=== PATIENT | female | born 1930 ===

== ENCOUNTER 2016-03-07 16:54 | Inpatient (IN) | payer OTHER, MEDICARE ==
[~2016-03-07] VITALS: Ht 152.4 cm; Wt 69.0 kg
[~2016-03-07 16:54] MED LIST: AFRIN30 ML NASB; ATORVASTATIN CA20 M1 PO; ATORVASTATIN CA20 MG PO; BENICAR40 MG PO; CARVEDILOL25 M1 PO; CLARITIN10 M1 PO; CLINDAMYCIN HC150 M1 PO; COUMADIN4 M1 PO; CYCLOBENZAPRINE5 M2 PO; DEMECLOCYCLINE300 MG PO; DIGOX0.25 MG PO; DIGOXIN250 MCG PO; FLEXERIL 5MG TAB5 MG PO; LASIX20 M1 PO; LASIX40 M1 PO; LASIX80 M1 PO; LIDOCAINE51 TOP; MAGNESIUM250 M3 PO; METOPROLOL TAR100 M1 PO; MULTI-DAY VITA1 EACH PO; NISOLDIPINE20 MG PO; PROCRIT10000 UNIT SC; SPIRONOLACTONE25 M1 PO; SPIRONOLACTONE25 MG PO; TEMAZEPAM15 M1 PO; TEMAZEPAM15 MG PO; TEMOVATE30 GM TOP; TRAZODONE HCL50 M1 PO; VESICARE5 M1 PO; VICODIN5-300 PO; VITAMIN D250000 UNIT PO; WARFARIN SODIUM2 M1 PO; WARFARIN SODIUM4 M1 PO; WARFARIN SODIUM5 M1 PO; WARFARIN SODIUM5 MG PO
--- NOTE | 2016-03-07 17:04 | NUR ---
PRESENTS TO ED FOR EVALUATION SECONDARY TO INCREASE EDEMA TO BILATERAL LOWER LEGS IN THE PAST WEEK AND NOW ALSO COMPLAINING OF BILATERAL ARM EDEMA. SHE REPORTED TO HAVE GAINED APPROXIMATELY 8 TO 10 LBS IN THE PAST WEEK. SHE ALSO REPORTS SOB ONLY UPON EXCERTION.
--- NOTE | 2016-03-07 17:42 | NUR ---
PT TO ROOM 1 RADIOLOGY AT BEDSIDE
[2016-03-07] MEDS ORDERED: FUROSEMIDE40 M1 PO (17:55)
[2016-03-07] MEDS ORDERED: TRAZODONE HCL50 M1 PO (17:56)
[2016-03-07] MEDS ORDERED: SENNA8.6 M3 PO (17:56)
[2016-03-07] MEDS ORDERED: SYSTANE 0.3-0.415 ML OPH (17:57)
[2016-03-07] MEDS ORDERED: SODIUM CHLORIDE1 G2 PO (17:57)
--- NOTE | 2016-03-07 18:04 | ED DYSPNEA/ASTHMA COMPLAINT ---
History of Present Illness General Chief Complaint: General Adult Stated Complaint: HX OF CHF, GAINED 10LBS, ARMS SWOLLEN, FELL YEST Source: patient Exam Limitations: no limitations Vital Signs & Intake/Output Vital Signs & Intake/Output Vital Signs Date Time Temp Pulse Resp B/P Pulse O2 O2 Flow FiO2 Ox Delivery Rate 03/07 2243 98.4 101 20 126/72 92 Room Air 03/07 2241 92 Room Air 03/07 1923 100 127/68 94 Room Air 03/07 1908 96 Room Air 03/07 1812 106 110/66 03/07 1703 98.1 103 18 104/56 92 Room Air ED Intake and Output 03/08 0000 03/07 1200 Intake Total 120 Output Total Balance 120 Intake, Oral 120 Patient 160 lb Weight Allergies Coded Allergies: Penicillins (EDEMA 09/18/15) cefdinir (TONGUE SWELLING 09/18/15) codeine (HYPERACTIVITY 09/18/15) erythromycin base (UPSET STOMACH 09/18/15) ibuprofen (UPSET STOMACH 09/18/15) Reconcile Medications Atorvastatin Calcium 20 MG TABLET 1 TAB PO DAILY CHOLESTEROL (Reported) Carvedilol 25 MG TABLET 1 TAB PO BID BP (Reported) Clobetasol Propionate (Temovate) 0.05 % CREAM..G. 1 SEB TOP PRN LEGS ( Reported) apply to affected area(s) Epoetin Edy (Procrit) 10,000 UNIT/ML VIAL 20,000 UNIT SC ONCE A WEEK ANEMIA Ergocalciferol (Vitamin D2) (Vitamin D2) 50,000 UNIT CAPSULE 1 CAP PO QSUN SUPPLEMENT (Reported) Furosemide 40 MG TABLET 1 TAB PO DAILY DIURETIC (Reported) Furosemide (Lasix) 80 MG TABLET 1 TAB PO DAILY HEART Nisoldipine 20 MG TAB.ER.24H 1 TAB PO QAM BP (Reported) Oxymetazoline HCl (Afrin) 0.05 % SPRAY NASAL CONGESTIN (Reported) Propylene Glycol/Peg 400 (Systane 0.3-0.4% Eye Drops) 0.3 %-0.4 % DROPS 1 GTT OPH QPM BOTH EYES (Reported) Sennosides (Senna) 8.6 MG TABLET 2 TAB PO QPM GI (Reported) Sodium Chloride 1 GRAM TABLET 1 TAB PO BID SODIUM (Reported) Solifenacin Succinate (Vesicare) 5 MG TABLET 1 TAB PO DAILY BLADDER (Reported ) Temazepam 15 MG CAPSULE 1 CAP PO QHS SLEEP (Reported) Trazodone HCl 50 MG TABLET 0.5 TAB PO Q4H PRN PANIC (Reported) Warfarin Sodium 4 MG TABLET 1 TAB PO DAILY AFIB (Reported) Triage Note: PRESENTS TO ED FOR EVALUATION SECONDARY TO INCREASE EDEMA TO BILATERAL LOWER LEGS IN THE PAST WEEK AND NOW ALSO COMPLAINING OF BILATERAL ARM EDEMA. SHE REPORTED TO HAVE GAINED APPROXIMATELY 8 TO 10 LBS IN THE PAST WEEK. SHE ALSO REPORTS SOB ONLY UPON EXCERTION. Triage Nurses Notes Reviewed? yes Onset: Abrupt Duration: day(s):, constant, getting worse Timing: recent history Severity: moderate, severe Activities at Onset: none HPI: 86-year-old female comes into emergency room with complaints of increase in shortness of breath, increased swelling in her legs and upper extremities. Patient was seen by Dr. Brink in the office. Patient was increased on the Lasix. Symptoms have gotten progressively worse. Patient has gained about 10 pounds in the week. Denies any chest pain. As any fever chills vomiting. (AHMET CISNEROS) Past History Travel History Traveled to [place] past 21 day No Medical History Any Pertinent Medical History? 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 No (AHMET CISNEROS) Review of Systems Review of Systems Constitutional: Reports: no symptoms. EENTM: Reports: no symptoms. Respiratory: Reports: see HPI. Cardiovascular: Reports: see HPI. GI: Reports: no symptoms. Genitourinary: Reports: no symptoms. Musculoskeletal: Reports: no symptoms. Skin: Reports: no symptoms. Neurological/Psychological: Reports: no symptoms. Hematologic/Endocrine: Reports: no symptoms. Immunologic/Allergic: Reports: no symptoms. All Other Systems: Reviewed and Negative (AHMET CISNEROS) Physical Exam Physical Exam General Appearance: well developed/nourished, alert, awake, mild distress Head: atraumatic, normal appearance Eyes: Bilateral: normal appearance, EOMI. Ears, Nose, Throat: normal pharynx, normal ENT inspection Neck: normal inspection Respiratory: decreased breath sounds, respiratory distress (mild) Cardiovascular: irregularly irregular Gastrointestinal: soft Extremities: normal inspection Neurologic/Psych: awake, alert, oriented x 3 Skin: intact, normal color Core Measures ACS in differential dx? No Severe Sepsis Present: No Septic Shock Present: No (AHMET CISNEROS) Progress Differential Diagnosis: asthma, AMI, bronchitis, costochondritis, CHF, COPD, musculoskeletal pain, pericarditis, pulmonary embolism, pneumonia, pneumothorax, rib fracture, unstable angina Plan of Care: Orders Procedure Date/time Status Heart Healthy Diet 03/08 B Active ECHOCARDIOGRAM 03/08 0800 Active TROPONIN LEVEL 03/08 0600 Active CBC WITHOUT DIFFERENTIAL 03/08 0600 Active BASIC ELECTROLYTES PLUS BUN&CR 03/08 0600 Active EKG 03/08 0600 Active TROPONIN LEVEL 03/08 0000 Active PROTHROMBIN TIME 03/08 0000 Active EKG 03/08 0000 Active Pathway - chart 03/07 2221 Active Pathway - chart 03/07 221 Active House Staff 03/07 2218 Active Patient Data 03/07 2218 Active Teach/Educate 03/07 2218 Active Nutritional Intake, Monitor 03/07 2218 Active Isolation 03/07 2218 Active Patient Care Conference 03/07 2218 Active Activity/Ambulation 03/07 221 Active Code Status 03/07 221 Active Saline Lock 03/07 2020 Active Misc Message 03/07 2020 Active ED Holding Orders 03/07 202 Active Vital Signs 03/07 202 Active Code Status 03/07 202 Complete Admit to inpatient 03/07 2020 Active Patient Data 03/07 1942 Active Intake & Output 03/07 1842 Active TROPONIN LEVEL 03/07 1729 Complete COMPREHENSIVE METABOLIC PANEL 03/07 1729 Complete CBC WITHOUT DIFFERENTIAL 03/07 1729 Complete B-TYPE NATRIURETIC PEP (BNP) 03/07 1729 Complete EKG 03/07 1729 Active VTE Mechanical Prophylaxis 03/07 UNK Active Telemetry/Warping Machine Operator 03/07 UNK Active Current Medications Sig/Aaliyah Start time Last Medication Dose Stop Time Status Admin Ergocalciferol 50,000 IU QSUN 03/14 0700 AC (Drisdol) Senna 374 MG AT BEDTIME 03/08 220 AC (Senokot) Atorvastatin Calcium 20 MG 1700 03/08 1700 AC (Lipitor) Furosemide 40 MG 7:30 AM, & 4:30 PM 03/08 07 UNVr (Lasix) Carvedilol 25 MG BID 03/07 2330 AC (Coreg) Non-Formulary 0 SEE ADMIN CRITERIA 03/07 2244 UNVr Medication (NON FORMULARY) Non-Formulary 0 SEE ADMIN CRITERIA 03/07 2244 UNVr Medication (NON FORMULARY) Temazepam 15 MG AT BEDTIME 03/07 2244 AC (Restoril) Trazodone HCl 25 MG Q4H PRN 03/07 2244 AC (Desyrel) Sodium Chloride 1,000 MG BID 03/07 2235 AC (Sodium Chloride) Clobetasol Propionate 1 SEB .[TOPICAL ] PRN 03/07 2229 UNVr (Clobetason) Laboratory Tests 03/08/16 0030: Troponin I Pending, PT Pending, INR Pending 03/07/16 1739: Anion Gap 13, Estimated GFR 17 L, BUN/Creatinine Ratio 16.3, Glucose 110 H, Calcium 9.5, Total Bilirubin 0.8, AST 17, ALT 24, Alkaline Phosphatase 112, Troponin I < 0.01, Sdb-[id number]-Qtvhucmsdrs Pept 70169 H, Total Protein 5.4 L, Albumin 3.0 L, Globulin 2.4, Albumin/Globulin Ratio 1.3, CBC w Diff NO MAN DIFF REQ, RBC 3.34 L, MCV 90.2, MCH 29.6, RDW 17.3 H, MPV 8.9, Gran % 93.5 H, Lymphocytes % 2.1 L, Monocytes % 3.9, Eosinophils % 0.4, Basophils % 0.1, Absolute Granulocytes 9.3 H, Absolute Lymphocytes 0.2 L, Absolute Monocytes 0.4, Absolute Eosinophils 0, Absolute Basophils 0, PUBS MCHC 32.8 L Diagnostic Imaging: Viewed by Me: Radiology Read. Discussed w/RAD: Radiology Read. Radiology Impression: SERVICE DATE: 03/07/16-1728 EXAM TYPE: RAD - XRY- PORTABLE CHEST XRAY EXAMINATION: XR PORTABLE CHEST CLINICAL INFORMATION: Shortness of breath. COMPARISON: Chest x-ray 12/19/2015. TECHNIQUE: Portable view of the chest was obtained. FINDINGS: Single AP view of the chest demonstrates pulmonary hypoinflation and bronchovascular crowding. Newly identified is a small to moderate left-sided pleural effusion. Left basilar opacification is nonspecific and could reflect atelectasis although superimposed infection cannot be excluded. There is stable prominence of the cardiac silhouette without overt pulmonary edema. No pneumothoraces. No visible acute osseous abnormality. IMPRESSION: Blunting of the left costophrenic angle, suggestive of a small to moderate left-sided pleural effusion. Stable cardiomegaly, without overt pulmonary edema. Left basilar opacification is nonspecific and could reflect atelectasis although superimposed infection cannot be excluded in the appropriate clinical setting. Initial ED EKG: rate (106), AFIB (AHMET CISNEROS) Departure Departure Disposition: STILL A PATIENT Condition: Stable Clinical Impression Primary Impression: CHF exacerbation Secondary Impressions: Acute kidney injury, Hyponatremia Referrals: MONICA CRANDALL,AURA Jones (PCP/Family) Departure Forms: Customer Survey General Discharge Information Admission Note Spoke With: LEOPOLDO CRANDALL,SUSY Rose Documentation of Exam: Documentation of any treatments & extenuating circumstances including Concerns Regarding Discharge (functional status, medication knowledge or non-compliance, living conditions, etc.) that warrant an admission rather than observation: Patient will require IV Lasix. Gentlehydration. Cardiology consultation. Echocardiogram. Cardiac telemetry. High risk. (AHMET CISNEROS) PA/BROACH GRINDER Co-Sign Statement Statement: ED Attending supervision documentation- [x] I saw and evaluated the patient. I have also reviewed all the pertinent lab results and diagnostic results. I agree with the findings and the plan of care as documented in the PA's/BROACH GRINDER's documentation. pt signed out to me... pt with dyspnea c/w chf, merits diuresis and [address] spaulding [] I have reviewed the ED Record and agree with the PA's/BROACH GRINDER's documentation. [] Additions or exceptions (if any) to the PAs/BROACH GRINDER's note and plan are summarized below: [] (MARILYN CRANDALL,SMITHA Murry) Critical Care Note Critical Care Note Critical Care Time: 30-74 min (AHMET CISNEROS)
--- NOTE | 2016-03-07 18:12 | RADIOLOGY REPORT ---
EXAMINATION: XR PORTABLE CHEST CLINICAL INFORMATION: Shortness of breath. COMPARISON: Chest x-ray 12/19/2015. TECHNIQUE: Portable view of the chest was obtained. FINDINGS: Single AP view of the chest demonstrates pulmonary hypoinflation and bronchovascular crowding. Newly identified is a small to moderate left-sided pleural effusion. Left basilar opacification is nonspecific and could reflect atelectasis although superimposed infection cannot be excluded. There is stable prominence of the cardiac silhouette without overt pulmonary edema. No pneumothoraces. No visible acute osseous abnormality. IMPRESSION: Blunting of the left costophrenic angle, suggestive of a small to moderate left-sided pleural effusion. Stable cardiomegaly, without overt pulmonary edema. Left basilar opacification is nonspecific and could reflect atelectasis although superimposed infection cannot be excluded in the appropriate clinical setting.
--- NOTE | 2016-03-07 18:13 | NUR ---
PT EVALUTED BY YUMIKO JEROME
[2016-03-07 18:14] LABS: ABSOLUTE BASOPHIL COUNT 0 /CUMM (0.0-0.2); ABSOLUTE EOSINOPHIL COUNT 0 /CUMM (0.0-0.7); ABSOLUTE GRANULOCYTE CT 9.3 /CUMM (1.4-6.5); ABSOLUTE LYMPH COUNT 0.2 /CUMM (1.2-3.4); ABSOLUTE MONOCYTE COUNT 0.4 /CUMM (0.10-0.60); BASOPHIL % 0.1 % (0.0-2.0); EOSINOPHIL % 0.4 % (0-5); HEMATOCRIT 30.1 % (37-47); MEAN CORPUSCULAR HGB 29.6 PG (27.0-31.0); MEAN CORPUSCULAR HGB CONC 32.8 G/DL (33.0-37.0); MEAN CORPUSCULAR VOLUME 90.2 FL (81.0-99.0); MEAN PLATELET VOLUME 8.9 FL (7.4-10.4); PLATELET COUNT 204 /CUMM (130-400); RBC DISTRIBUTION WIDTH 17.3 % (11.5-14.5); RED BLOOD CELL CT 3.34 /CUMM (4.20-5.40)
[2016-03-07 18:19] LABS: GRANULOCYTE % 93.5 % (42.2-75.2)
[2016-03-07 18:41] LABS: WHITE BLOOD CELL COUNT 9.9 /CUMM (4.8-10.8)
--- NOTE | 2016-03-07 18:41 | NUR ---
[facility]ON Nurse Note by: MARCELINA CORRALES I agree with the METER READING CLERK findings/evaluation of this patient's condition. Entered by: MARCELINA CORRALES Date: 03/07/16 Time: 1840
--- NOTE | 2016-03-07 19:22 | NUR ---
PT MEDICATED WITH 40MG LASIX IV.
--- NOTE | 2016-03-07 19:42 | NUR ---
YUMIKO LEO AT BEDSIDE.
--- NOTE | 2016-03-07 20:47 | NUR ---
PT BED ASSIGNMENT 172
--- NOTE | 2016-03-07 20:56 | NUR ---
REPORT GIVEN TO ALEKSANDAR NAGY ON 1N.
--- NOTE | 2016-03-07 21:01 | NUR ---
[facility] CALLED FOR TRANSPORT TO ROOM 172.
--- NOTE | 2016-03-07 21:20 | History & Physical ---
General Information and HPI Allergies/Medications Allergies: Coded Allergies: Penicillins (EDEMA 09/18/15) cefdinir (TONGUE SWELLING 09/18/15) codeine (HYPERACTIVITY 09/18/15) erythromycin base (UPSET STOMACH 09/18/15) ibuprofen (UPSET STOMACH 09/18/15) Home Med list Atorvastatin Calcium 20 MG TABLET 1 TAB PO DAILY CHOLESTEROL (Reported) Carvedilol 25 MG TABLET 1 TAB PO BID BP (Reported) Clobetasol Propionate (Temovate) 0.05 % CREAM..G. 1 SEB TOP PRN LEGS ( Reported) apply to affected area(s) Epoetin Edy (Procrit) 10,000 UNIT/ML VIAL 20,000 UNIT SC ONCE A WEEK ANEMIA Ergocalciferol (Vitamin D2) (Vitamin D2) 50,000 UNIT CAPSULE 1 CAP PO QSUN SUPPLEMENT (Reported) Furosemide 40 MG TABLET 1 TAB PO DAILY DIURETIC (Reported) Furosemide (Lasix) 80 MG TABLET 1 TAB PO DAILY HEART Nisoldipine 20 MG TAB.ER.24H 1 TAB PO QAM BP (Reported) Oxymetazoline HCl (Afrin) 0.05 % SPRAY NASAL CONGESTIN (Reported) Propylene Glycol/Peg 400 (Systane 0.3-0.4% Eye Drops) 0.3 %-0.4 % DROPS 1 GTT OPH QPM BOTH EYES (Reported) Sennosides (Senna) 8.6 MG TABLET 2 TAB PO QPM GI (Reported) Sodium Chloride 1 GRAM TABLET 1 TAB PO BID SODIUM (Reported) Solifenacin Succinate (Vesicare) 5 MG TABLET 1 TAB PO DAILY BLADDER (Reported ) Temazepam 15 MG CAPSULE 1 CAP PO QHS SLEEP (Reported) Trazodone HCl 50 MG TABLET 0.5 TAB PO Q4H PRN PANIC (Reported) Warfarin Sodium 4 MG TABLET 1 TAB PO DAILY AFIB (Reported) Past History Travel History Traveled to [place] past 21 day No Medical History Neurological: NONE EENT: NONE Cardiovascular: AFIB, hypertension, hyperlipidemia Respiratory: NONE Gastrointestinal: NONE Hepatic: NONE, ELEVATED LIVER ENZYMES Renal: ELEVATED RENAL FUNCTIONS Musculoskeletal: osteoporosis Psychiatric: NONE Endocrine: NONE Blood Disorders: NONE Cancer(s): NONE 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
--- NOTE | 2016-03-07 22:17 | History & Physical ---
MORIAH BRAGG 03/07/16 2216: General Information and HPI MD Statement: I have seen and personally examined TORRIE STANTON and documented this H&P. The patient is a 86 year old F who presented with a patient stated chief complaint of [upper and lower extremity swelling, weakness with ambulation]. Source of Information: patient, family, old records Exam Limitations: no limitations History of Present Illness: Mrs Stanton is a very pleasant 86-year-old lady with a PMH of atrial fibrillation on Coumadin, HTN, HLD, COPD, iron deficiency anemia presents with complaints of one-week duration upper and lower extremity swelling, 10 pound weight gain and exertional shortness of breath. She was last admitted to [facility] in November 2015 for lower extremity edema, managed with IV Lasix, returned a few days later after suffering a fall and discharged to [facility], [place] for rehabilitation. She was sent home 2 days before [place] and reports doing well overall until February 28 when she noted exertional shortness of breath and ambulating with walker and new onset bilateral upper extremity swelling/weeping along with bilateral lower extremity swelling. She contacted her hands parter and started on additional furosemide 40 mg daily along with her previous dose of 80 mg daily. In the setting of her anemia she also recently started weekly Procrit shots at the [facility] infusion center with noticeable improvement in her energy level. She reports decreased urine output but denies any fevers, chills, productive cough, headache, dizziness, palpitations, chest pain, new onset numbness in any of her extremities. Her last echocardiogram from : LVEF 60%, mild LVH, severely dilated right atrium, RV systolic pressure 46.7 mmHg. Allergies/Medications Allergies: Coded Allergies: Penicillins (EDEMA 09/18/15) cefdinir (TONGUE SWELLING 09/18/15) codeine (HYPERACTIVITY 09/18/15) erythromycin base (UPSET STOMACH 09/18/15) ibuprofen (UPSET STOMACH 09/18/15) Past History Travel History Traveled to [place] past 21 day No Medical History Neurological: NONE EENT: NONE Cardiovascular: AFIB, hypertension, hyperlipidemia Respiratory: NONE Gastrointestinal: NONE Hepatic: NONE, ELEVATED LIVER ENZYMES Renal: ELEVATED RENAL FUNCTIONS Musculoskeletal: osteoporosis Psychiatric: NONE Endocrine: NONE Blood Disorders: NONE Cancer(s): NONE DIRECTOR OF VOCATIONAL GUIDANCE/Reproductive: NONE History of MRSA: Yes History of VRE: No History of CDIFF: No Surgical History Surgical History: B/L KNEE REPLACEMENT HYSTERECTOMY PLEURISY Past Family/Social History Psychosocial History Services at Home: None Functional Ability ADLs Independent: dressing, eating, toileting. Ambulation: walker Review of Systems Review of Systems Constitutional: Reports: see HPI. EENTM: Reports: blurred vision. Cardiovascular: Reports: see HPI. Respiratory: Reports: see HPI. GI: Reports: constipation. Genitourinary: Reports: see HPI. Musculoskeletal: Reports: see HPI. Hematologic/Endocrine: Reports: see HPI. Exam & Diagnostic Data Last 24 Hrs of Vital Signs/I&O Vital Signs Date Time Temp Pulse Resp B/P Pulse O2 O2 Flow FiO2 Ox Delivery Rate 03/07 2243 98.4 101 20 126/72 92 Room Air 03/07 2241 92 Room Air 03/07 1923 100 127/68 94 Room Air 03/07 1908 96 Room Air 03/07 1812 106 110/66 03/07 1703 98.1 103 18 104/56 92 Room Air Physical Exam General Appearance Alert, Cooperative, No Acute Distress Skin Bilateral temporal hyperpigmentation HEENT PERRLA, EOMI, Mucous Membr. moist/pink Cardiovascular Irregularly irregular rhythm. Systolic murmur Lungs Inspiratory crackles present in the basilar regions bilaterally Abdomen Normal Bowel Sounds, Soft, No Tenderness Neurological Normal Speech, Normal Tone, Sensation Intact, Cranial Nerves 3-12 NL Extremities 3+ pitting edema BL upper and lower extremities Vascular Pulses Symmetrical, Distal aspect of both feeet slightly cool to touch Last 24 Hrs of Labs/Saad: Laboratory Tests 03/07/16 1739: Anion Gap 13, Estimated GFR 17 L, BUN/Creatinine Ratio 16.3, Glucose 110 H, Calcium 9.5, Total Bilirubin 0.8, AST 17, ALT 24, Alkaline Phosphatase 112, Troponin I < 0.01, Ghg-N-Qvjfmndagus Pept 75924 H, Total Protein 5.4 L, Albumin 3.0 L, Globulin 2.4, Albumin/Globulin Ratio 1.3, CBC w Diff NO MAN DIFF REQ, RBC 3.34 L, MCV 90.2, MCH 29.6, RDW 17.3 H, MPV 8.9, Gran % 93.5 H, Lymphocytes % 2.1 L, Monocytes % 3.9, Eosinophils % 0.4, Basophils % 0.1, Absolute Granulocytes 9.3 H, Absolute Lymphocytes 0.2 L, Absolute Monocytes 0.4, Absolute Eosinophils 0, Absolute Basophils 0, PUBS MCHC 32.8 L Diagnostic Data CXR Results Blunting of the left costophrenic angle, suggestive of a small to moderate left- sided pleural effusion. Stable cardiomegaly, without overt pulmonary edema. Left basilar opacification is nonspecific and could reflect atelectasis although superimposed infection cannot be excluded in the appropriate clinical setting. Assessment/Plan Assessment: 86-year-old lady with a PMH of atrial fibrillation on Coumadin, HTN, HLD, COPD, iron deficiency anemia presents with complaints of one-week duration upper and lower extremity swelling, 10 pound weight gain and exertional shortness of breath. She was last admitted to [facility] in November 2015 for lower extremity edema, managed with IV Lasix, returned a few days later after suffering a fall and discharged to [facility], [place] for rehabilitation. She was sent home 2 days before [place] and reports doing well overall until February 28 when she noted exertional shortness of breath and ambulating with walker and new onset bilateral upper extremity swelling/weeping along with bilateral lower extremity swelling. She contacted her hands parter and started on additional furosemide 40 mg daily along with her previous dose of 80 mg daily. In the setting of her anemia she also recently started weekly Procrit shots at the [facility] center with noticeable improvement in her energy level. She reports decreased urine output but denies any fevers, chills, productive cough, headache, dizziness, palpitations, chest pain, new onset numbness in any of her extremities. VS: BP 104/56, HR 103, RR 18, SPO2 92% on RA, T 98.1 Pertinent labs: WBC 9.9, H&H 9.9/30.1, BUN/CR 44/2.7 ProBNP: 17,500 Troponin: <0.01 Problem list: 1. CHF exacerbation 2. Anasarca 3. A. fib 4. CKD 5. Iron deficiency Anemia 6. Hyponatremia: Likely secondary to fluid overload in the setting of CHF Plan: * Admit to telemetry for continuous cardiac monitoring. Serial EKG/troponin: 0000 hours, 0600 hrs. * Repeat echocardiogram in the a.m. to assess for RV systolic pressure, EF. Patient will follow-up with Dr. Cedeno in the a.m. * IV Lasix 40 mg twice a day. Monitor I/O, renal function, magnesium, phosphorus, potassium * Daily weights * Follow-up INR and dose Coumadin for goal 2-3 * Patient follows up with Dr. Day for her CKD. A.m. consult for follow-up recommendations * Heart healthy diet * DVT prophylaxis: Coumadin * DNR/DNI AM team: Please have daughter bring her current blood pressure medication ( Nisoldipine) and ophthalmic medication (systain) as our inpatient pharmacy does not have these in house. As Ranked By This Provider Problem List: 1. CHF exacerbation 2. Anasarca 3. Acute kidney injury Core Measures/Miscellaneous Acute Coronary Syndrome ACS Diagnosis: No Cerebrovascular Accident CVA/TIA Diagnosis: No Congestive Heart Failure CHF Diagnosis: Yes Date of most recent Echo: 12/21/15 Last Known EF %: 60 Venous Thromboembolism VTE Risk Factors: Age > 40 VTE Prophylaxis Ordered Inpt: [facility] prophylaxis d/t: No contraindications No VTE Pharm Prophylaxis d/t: No contraindications VTE Diagnosis: No VTE Type: NONE VTE Confirmed by (Test): NONE Severe Sepsis Severe Sepsis Present: No Septic Shock Septic Shock Present: No Miscellaneous Documentation Attending Case Discussed With: MARIO CEDENO MD Primary Care Physician: AURA ANDERSON MD Patient sees these Specialists NA Level of Patient Care: Telemetry Resident Review Statement Resident Statement: examined this patient, discussed with international trade analyst, agreed with international trade analyst, discussed with family, reviewed EMR data (avail), discussed with nursing , reviewed images MARIO CEDENO MD 03/08/16 0927: General Information and HPI Allergies/Medications Home Med list Atorvastatin Calcium 20 MG TABLET 1 TAB PO DAILY CHOLESTEROL (Reported) Carvedilol 25 MG TABLET 1 TAB PO BID BP (Reported) Epoetin Edy (Procrit) 10,000 UNIT/ML VIAL 20,000 UNIT SC ONCE A WEEK ANEMIA Ergocalciferol (Vitamin D2) (Vitamin D2) 50,000 UNIT CAPSULE 1 CAP PO QSUN SUPPLEMENT (Reported) Furosemide 40 MG TABLET 1 TAB PO DAILY DIURETIC (Reported) Furosemide (Lasix) 80 MG TABLET 1 TAB PO DAILY HEART Nisoldipine 20 MG TAB.ER.24H 1 TAB PO QAM BP (Reported) Oxymetazoline HCl (Afrin) 0.05 % SPRAY NASAL CONGESTIN (Reported) Propylene Glycol/Peg 400 (Systane 0.3-0.4% Eye Drops) 0.3 %-0.4 % DROPS 1 GTT OPH QPM BOTH EYES (Reported) Sennosides (Senna) 8.6 MG TABLET 2 TAB PO QPM GI (Reported) Sodium Chloride 1 GRAM TABLET 1 TAB PO BID SODIUM (Reported) Solifenacin Succinate (Vesicare) 5 MG TABLET 1 TAB PO DAILY BLADDER (Reported ) Temazepam 15 MG CAPSULE 1 CAP PO QHS SLEEP (Reported) Trazodone HCl 50 MG TABLET 0.5 TAB PO Q4H PRN PANIC (Reported) Warfarin Sodium (Coumadin) 3 MG TABLET 1 TAB PO DAILY A.fib (Reported) total dose 3.5 daily Warfarin Sodium (Coumadin) 1 MG TABLET 0.5 TAB PO DAILY A.fib (Reported) total dose 3.5 daily Past Family/Social History Family History Relations & Conditions if any FATHER Coronary artery disease Attending MD Review Statement Attending Statement Attending MD Statement: examined this patient, discuss w/resident/PA/SANDWICH MAKER, agreed w/resident/PA/SANDWICH MAKER, discussed with family, reviewed EMR data (avail), discussed with nursing, reviewed images, amended to note Attending Assessment/Plan: Agree with housestaff note above. The patient is an 86-year-old female who follows up with me in the office for chronic atrial fibrillation, HFpEF, and hypertension. She was seen in the office one week ago, which time I increased her Lasix dose to 80 mg every morning with 40 mg every afternoon because of symptoms of worsening heart failure. She presented to the emergency department with complaint of worsening edema of the lower and upper extremities. She complains of recent weight gain. She also complains of recent weakness. She was treated with IV Lasix, and was admitted for acute on chronic exacerbation of HFpEF. No chest pain. No palp. No syncope ROS: No fever. No chills. No rash. All other systems are reviewed and are negative. EKG tracing is independently reviewed, and reveals A-Fib at 88 with low voltage and nonspecific T-wave abnormality Gen: The patient is in no acute distress HEENT: Normal nose, ears, and oropharynx. Pupils equal bilaterally. Conjunctiva normal. Neck: Supple with no JVD, no masses, and no thyromegaly Lungs: Bilateral rales with normal respiratory effort Heart: Irreg irreg, S1, S2, 2/6 systolic murmur. 2+ peripheral edema, 2+ pulses in the lower extremities bilaterally Abdomen: Soft, nontender, no masses. No hepatomegaly. No splenomegaly Extremities: No clubbing or cyanosis. Normal muscle strength in the upper and lower extremities Skin: Normal skin turgor with no skin ulcers or lesions noted. Neuro: Cranial nerves intact. Sensation intact Psych: Alert and oriented 3 with appropriate affect Laboratory Tests 03/08 03/08 0620 0030 Chemistry Sodium (137 - 145 mmol/L) 129 L Potassium (3.5 - 5.1 mmol/L) 4.5 Chloride (98 - 107 mmol/L) 96 L Carbon Dioxide (22 - 30 mmol/L) 21 L Anion Gap (5 - 16) 12 BUN (7 - 17 mg/dL) 45 H Creatinine (0.5 - 1.0 mg/dL) 2.7 H Estimated GFR (>60 ml/min) 17 L BUN/Creatinine Ratio (7 - 25 %) 16.7 Troponin I (< 0.11 ng/ml) 0.01 0.01 Coagulation PT (9.4 - 12.5 SEC) 32.6 H INR (0.90 - 1.19) 3.14 H Hematology CBC w Diff NO MAN DIFF REQ WBC (4.8 - 10.8 /CUMM) 6.3 RBC (4.20 - 5.40 /CUMM) 2.85 L Hgb (12.0 - 16.0 G/DL) 8.5 L Hct (37 - 47 %) 25.4 L MCV (81.0 - 99.0 FL) 89.2 MCH (27.0 - 31.0 PG) 30.0 RDW (11.5 - 14.5 %) 17.5 H Plt Count (130 - 400 /CUMM) 169 MPV (7.4 - 10.4 FL) 9.4 Gran % (42.2 - 75.2 %) 83.5 H Lymphocytes % (20.5 - 51.1 %) 6.7 L Monocytes % (1.7 - 9.3 %) 6.6 Eosinophils % (0 - 5 %) 2.3 Basophils % (0.0 - 2.0 %) 0.9 Absolute Granulocytes (1.4 - 6.5 /CUMM) 5.3 Absolute Lymphocytes (1.2 - 3.4 /CUMM) 0.4 L Absolute Monocytes (0.10 - 0.60 /CUMM) 0.4 Absolute Eosinophils (0.0 - 0.7 /CUMM) 0.1 Absolute Basophils (0.0 - 0.2 /CUMM) 0.1 PUBS MCHC (33.0 - 37.0 G/DL) 33.6 03/07 1739 Chemistry Sodium (137 - 145 mmol/L) 131 L Potassium (3.5 - 5.1 mmol/L) 4.8 Chloride (98 - 107 mmol/L) 95 L Carbon Dioxide (22 - 30 mmol/L) 22 Anion Gap (5 - 16) 13 BUN (7 - 17 mg/dL) 44 H Creatinine (0.5 - 1.0 mg/dL) 2.7 H Estimated GFR (>60 ml/min) 17 L BUN/Creatinine Ratio (7 - 25 %) 16.3 Glucose (65 - 99 mg/dL) 110 H Calcium (8.4 - 10.2 mg/dL) 9.5 Total Bilirubin (0.2 - 1.3 mg/dL) 0.8 AST (14 - 36 U/L) 17 ALT (9 - 52 U/L) 24 Alkaline Phosphatase (<127 U/L) 112 Troponin I (< 0.11 ng/ml) < 0.01 Nnq-E-Sqjaxsfnvhj Pept (<125 pg/mL) 48513 H Total Protein (6.3 - 8.2 g/dL) 5.4 L Albumin (3.5 - 5.0 g/dL) 3.0 L Globulin (1.9 - 4.2 gm/dL) 2.4 Albumin/Globulin Ratio (1.1 - 2.2 %) 1.3 Hematology CBC w Diff NO MAN DIFF REQ WBC (4.8 - 10.8 /CUMM) 9.9 RBC (4.20 - 5.40 /CUMM) 3.34 L Hgb (12.0 - 16.0 G/DL) 9.9 L Hct (37 - 47 %) 30.1 L MCV (81.0 - 99.0 FL) 90.2 MCH (27.0 - 31.0 PG) 29.6 RDW (11.5 - 14.5 %) 17.3 H Plt Count (130 - 400 /CUMM) 204 MPV (7.4 - 10.4 FL) 8.9 Gran % (42.2 - 75.2 %) 93.5 H Lymphocytes % (20.5 - 51.1 %) 2.1 L Monocytes % (1.7 - 9.3 %) 3.9 Eosinophils % (0 - 5 %) 0.4 Basophils % (0.0 - 2.0 %) 0.1 Absolute Granulocytes (1.4 - 6.5 /CUMM) 9.3 H Absolute Lymphocytes (1.2 - 3.4 /CUMM) 0.2 L Absolute Monocytes (0.10 - 0.60 /CUMM) 0.4 Absolute Eosinophils (0.0 - 0.7 /CUMM) 0 Absolute Basophils (0.0 - 0.2 /CUMM) 0 PUBS MCHC (33.0 - 37.0 G/DL) 32.8 L CXR: Blunting of the left costophrenic angle, suggestive of a small to moderate left-sided pleural effusion. Stable cardiomegaly, without overt pulmonary edema. Left basilar opacification is nonspecific and could reflect atelectasis although superimposed infection cannot be excluded in the appropriate clinical setting. Echo : 1. Normal EF of 60%. 2. Mild left ventricular hypertrophy. 3. Mild right ventricular enlargment. 4. Severely dilated right atrium. 5. Mild left atrial enlargment. 6. Mild mitral regurgitation. 7. Moderate to severe tricuspid regurgitation. 8. Trace aortic regurgitation and mild aortic stenosis. The aortic valve is suspected to be bicuspid. 9. Trace pulmonic regurgitation. 10. Moderate pulmonary hypertension. Assessment: 1. Chronic atrial fibrillation, anticoagulated on warfarin. 2. Moderate pulmonary hypertension with moderate to severe tricuspid regurgitation 3. Mild aortic stenosis 4. Acute exacerbation of HFpEF. Plan: * Increase Lasix to 80 mg IV every 12 hours * Follow input and output with daily weights * Check basic metabolic profile daily * Continue carvedilol for rate control * Continue warfarin
[2016-03-07 22:44] VITALS: BP 126/72
[2016-03-08 01:23] LABS: PT 32.6 SEC (9.4-12.5)
[2016-03-08 08:04] LABS: ABSOLUTE BASOPHIL COUNT 0.1 /CUMM (0.0-0.2); ABSOLUTE EOSINOPHIL COUNT 0.1 /CUMM (0.0-0.7); ABSOLUTE GRANULOCYTE CT 5.3 /CUMM (1.4-6.5); ABSOLUTE LYMPH COUNT 0.4 /CUMM (1.2-3.4); ABSOLUTE MONOCYTE COUNT 0.4 /CUMM (0.10-0.60); BASOPHIL % 0.9 % (0.0-2.0); EOSINOPHIL % 2.3 % (0-5); GRANULOCYTE % 83.5 % (42.2-75.2); HEMATOCRIT 25.4 % (37-47); MEAN CORPUSCULAR HGB CONC 33.6 G/DL (33.0-37.0); MEAN CORPUSCULAR VOLUME 89.2 FL (81.0-99.0); MEAN PLATELET VOLUME 9.4 FL (7.4-10.4); PLATELET COUNT 169 /CUMM (130-400); RBC DISTRIBUTION WIDTH 17.5 % (11.5-14.5); RED BLOOD CELL CT 2.85 /CUMM (4.20-5.40); WHITE BLOOD CELL COUNT 6.3 /CUMM (4.8-10.8)
[2016-03-08 08:26] VITALS: BP 112/52
--- NOTE | 2016-03-08 08:59 | PN- Housestaff ---
Subjective Follow-up For: Acute exacerbation of HFpEF Subjective: Patient seen and examined. Her shortness of breath has not changed since admission. Denies headache, nausea, vomiting, dizziness, lightheadedness, chest pain, palpitation, abdominal pain, urinary symptoms. Vital signs stable. No overnight events reported. Review of Systems Constitutional: Denies: see HPI. Objective Last 24 Hrs of Vital Signs/I&O Vital Signs Date Time Temp Pulse Resp B/P Pulse O2 O2 Flow FiO2 Ox Delivery Rate 03/08 0836 85 112/52 03/08 0826 98.3 85 20 112/52 91 Room Air 03/08 0800 91 Room Air 03/08 0000 85 112/52 03/07 2244 98.4 101 20 126/72 92 Room Air 03/07 2241 92 Room Air 03/07 1923 100 127/68 94 Room Air 03/07 1908 96 Room Air 03/07 1812 106 110/66 03/07 1703 98.1 103 18 104/56 92 Room Air Intake & Output 03/08 1600 03/08 0800 03/08 0000 Intake Total 120 Output Total 200 Balance -200 120 Intake, Oral 120 Output, Urine 200 Patient 160 lb Weight Physical Exam General Appearance: Alert, Oriented X3, Cooperative, No Acute Distress Skin: No Rashes, No Breakdown, No Significant Lesion HEENT: Atraumatic, PERRLA, EOMI, Mucous Membr. moist/pink Neck: Supple, No JVD, No thryomegaly, +2 Carotid Pulse wo Bruit, No LAD Lymphatic: Axillary nl, Cervical nl Cardiovascular: No Murmurs, Gallops, Irregular Lungs: Bibasilar crackles Abdomen: Normal Bowel Sounds, Soft, No Tenderness, No Hepatospenomegaly, No Masses Neurological: Normal Speech, Strength at 5/5 X4 Ext, Normal Tone, Sensation Intact, Cranial Nerves 3-12 NL, Reflexes 2+ Extremities: No Clubbing, No Cyanosis, Normal Pulses, No Tenderness/Swelling, B/ L pedal edema Vascular: Normal Pulses, Pulses Symmetrical Current Medications: Current Medications Sig/Aaliyah Start time Last Medication Dose Route Stop Time Status Admin Artificial Tears 1 GTT TID PRN 03/08 1000 AC OPH Atorvastatin Calcium 20 MG 1700 03/08 1700 AC PO Carvedilol 25 MG BID 03/07 2330 AC 03/08 PO 0936 Clobetasol Propionate 1 SEB BID PRN 03/08 1000 AC TOP Epoetin Edy 15,000 UNITS QMON 03/08 1130 CAN SC Epoetin Edy 10,000 UNIT QMON 03/08 1130 AC 03/08 SC 1224 Epoetin Edy 2,000 UNIT QMON 03/08 1130 AC 03/08 SC 1225 Epoetin Edy 3,000 UNIT QMON 03/08 1130 AC 03/08 SC 1225 Ergocalciferol 50,000 IU QSUN 03/14 0700 AC PO Furosemide 80 MG 7:30 AM, & 4:30 PM 03/08 1630 AC 03/08 IV 1542 Furosemide 40 MG 7:30 AM, & 4:30 PM 03/08 0730 DC 03/08 IV 0805 Furosemide 0 .STK-MED ONE 03/07 1916 DC IV Furosemide 40 MG ONCE ONE 03/07 1900 DC 03/07 IV 03/07 1901 1922 Non-Formulary 0 SEE ADMIN CRITERIA 03/07 2245 CAN Medication ANY Nystatin 1 SEB BID 03/08 1313 AC 03/08 TOP 1542 Senna 374 MG AT BEDTIME 03/08 2200 AC PO Sodium Chloride 1,000 MG BID 03/07 2236 AC 03/08 PO 0936 Temazepam 15 MG AT BEDTIME 03/07 2245 AC 03/08 PO 0000 Trazodone HCl 25 MG Q4H PRN 03/07 2245 AC PO Warfarin Sodium 3 MG COUMADIN 1700 ONE 03/08 1700 UNVr PO 03/08 1701 Last 24 Hrs of Lab/Saad Results Last 24 Hrs of Labs/Mics: Laboratory Tests 03/08/16 1210: PT 27.4 H, INR 2.63 H 03/08/16 0620: Anion Gap 12, Estimated GFR 17 L, BUN/Creatinine Ratio 16.7, Iron 17 L, TIBC 267, Troponin I 0.01, CBC w Diff NO MAN DIFF REQ, RBC 2.85 L, MCV 89.2, MCH 30.0, RDW 17.5 H, MPV 9.4, Gran % 83.5 H, Lymphocytes % 6.7 L, Monocytes % 6.6, Eosinophils % 2.3, Basophils % 0.9, Absolute Granulocytes 5.3, Absolute Lymphocytes 0.4 L, Absolute Monocytes 0.4, Absolute Eosinophils 0.1, Absolute Basophils 0.1, PUBS MCHC 33.6 03/08/16 0030: Troponin I 0.01, PT 32.6 H, INR 3.14 H 03/07/16 1739: Anion Gap 13, Estimated GFR 17 L, BUN/Creatinine Ratio 16.3, Glucose 110 H, Calcium 9.5, Total Bilirubin 0.8, AST 17, ALT 24, Alkaline Phosphatase 112, Troponin I < 0.01, Ely-C-Uyspqwrtfzm Pept 71931 H, Total Protein 5.4 L, Albumin 3.0 L, Globulin 2.4, Albumin/Globulin Ratio 1.3, CBC w Diff NO MAN DIFF REQ, RBC 3.34 L, MCV 90.2, MCH 29.6, RDW 17.3 H, MPV 8.9, Gran % 93.5 H, Lymphocytes % 2.1 L, Monocytes % 3.9, Eosinophils % 0.4, Basophils % 0.1, Absolute Granulocytes 9.3 H, Absolute Lymphocytes 0.2 L, Absolute Monocytes 0.4, Absolute Eosinophils 0, Absolute Basophils 0, PUBS MCHC 32.8 L Assessment/Plan Assessment: This is a 89-year-old lady with past medical history significant for chronic atrial fibrillation, HFpEF, Hypertension who presented to the hospital with worsening edema in UEs and LEs along with dyspnea. Problem list: 1-Acute Hfpef exacerbation 2-Chronic A.fib on Warfarin, Supratherapeutic INR on admission 3-CKD Plan: * Telemtry monitor * Is&Os, daily Wts * Lasix was increased to 80MG IV BID * Echo pending * Daiy BEP * Nephro consult appreciated:Fluid restriction 800ML daily, * INR 2.63 today will administer 3 mg Warfarin; INR tomorrow morning * C/W Carvediolol * DNI/DNR * DVT PPX: On Warfarin with therapeutic INR Problem List: 1. CHF exacerbation 2. Acute kidney injury Pain Ratin Pain Location: NA Pain Goal: Remain pain free Pain Plan: NA Tomorrow's Labs & Rationales: BEP: Cr monitor INR: ON warfarin
--- NOTE | 2016-03-08 11:28 | Cons- Nephrology ---
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 Admit yeterday w increased leg swelling & fatigue. Known severe, stage 4, CKD w baseline Cr 2.5 - 3 associated w nonnephrotic range proteinuria & anemia requiring outpt pt EPO 20,000 units q 3 wks. Cr at baseline on admit but Hg drop 8.8 from recent 9.5 -10. Denies hematemesis, hematochezia, or episatxis; has not missed any EPO shots. No SOB & denies gross uremic sx. Allergies/Medications Allergies: Coded Allergies: Penicillins (EDEMA 09/18/15) cefdinir (TONGUE SWELLING 09/18/15) codeine (HYPERACTIVITY 09/18/15) erythromycin base (UPSET STOMACH 09/18/15) ibuprofen (UPSET STOMACH 09/18/15) Home Med List: Atorvastatin Calcium 20 MG TABLET 1 TAB PO DAILY CHOLESTEROL (Reported) Carvedilol 25 MG TABLET 1 TAB PO BID BP (Reported) Clobetasol Propionate (Temovate) 0.05 % CREAM..G. 1 SEB TOP PRN LEGS ( Reported) apply to affected area(s) Epoetin Edy (Procrit) 10,000 UNIT/ML VIAL 20,000 UNIT SC ONCE A WEEK ANEMIA Ergocalciferol (Vitamin D2) (Vitamin D2) 50,000 UNIT CAPSULE 1 CAP PO QSUN SUPPLEMENT (Reported) Furosemide 40 MG TABLET 1 TAB PO DAILY DIURETIC (Reported) Furosemide (Lasix) 80 MG TABLET 1 TAB PO DAILY HEART Nisoldipine 20 MG TAB.ER.24H 1 TAB PO QAM BP (Reported) Oxymetazoline HCl (Afrin) 0.05 % SPRAY NASAL CONGESTIN (Reported) Propylene Glycol/Peg 400 (Systane 0.3-0.4% Eye Drops) 0.3 %-0.4 % DROPS 1 GTT OPH QPM BOTH EYES (Reported) Sennosides (Senna) 8.6 MG TABLET 2 TAB PO QPM GI (Reported) Sodium Chloride 1 GRAM TABLET 1 TAB PO BID SODIUM (Reported) Solifenacin Succinate (Vesicare) 5 MG TABLET 1 TAB PO DAILY BLADDER (Reported ) Temazepam 15 MG CAPSULE 1 CAP PO QHS SLEEP (Reported) Trazodone HCl 50 MG TABLET 0.5 TAB PO Q4H PRN PANIC (Reported) Warfarin Sodium 4 MG TABLET 1 TAB PO DAILY AFIB (Reported) Current Medications: Current Medications Sig/Aaliyah Start time Last Medication Dose Route Stop Time Status Admin Artificial Tears 1 GTT TID PRN 03/08 1000 AC OPH Atorvastatin Calcium 20 MG 1700 03/08 1700 AC PO Carvedilol 25 MG BID 03/07 2330 AC 03/08 PO 0936 Clobetasol Propionate 1 SEB BID PRN 03/08 1000 AC TOP Ergocalciferol 50,000 IU QSUN 03/14 0700 AC PO Furosemide 40 MG 7:30 AM, & 4:30 PM 03/08 0730 AC 03/08 IV 0805 Furosemide 0 .STK-MED ONE 03/07 1916 DC IV Furosemide 40 MG ONCE ONE 03/07 1900 DC 03/07 IV 03/07 1901 1922 Non-Formulary 0 SEE ADMIN CRITERIA 03/07 2245 CAN Medication ANY Senna 374 MG AT BEDTIME 03/08 2200 AC PO Sodium Chloride 1,000 MG BID 03/07 2236 AC 03/08 PO 0936 Temazepam 15 MG AT BEDTIME 03/07 2245 AC 03/08 PO 0000 Trazodone HCl 25 MG Q4H PRN 03/07 2245 AC PO Review of Systems Review of Systems Constitutional: Reports: no symptoms. EENTM: Reports: no symptoms. Cardiovascular: Reports: edema. Respiratory: Reports: no symptoms. GI: Reports: no symptoms. Genitourinary: Reports: no symptoms. Musculoskeletal: Reports: no symptoms. Skin: Reports: no symptoms. Neurological/Psychological: Reports: no symptoms. Hematologic/Endocrine: Reports: no symptoms. Immunologic/Allergic: Reports: no symptoms. 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 Home Services at Home: Home Health Aide Smoking Status: Never Smoked Functional Ability ADLs Independent: dressing, eating, toileting. Ambulation: walker Exam & Diagnostic Data Vital Signs and I&O Vital Signs Date Time Temp Pulse Resp B/P Pulse O2 O2 Flow FiO2 Ox Delivery Rate 03/08 0936 85 112/52 03/08 0826 98.3 85 20 112/52 91 Room Air 03/08 0000 85 112/52 03/07 2244 98.4 101 20 126/72 92 Room Air 03/07 2241 92 Room Air 03/07 1923 100 127/68 94 Room Air 03/07 1908 96 Room Air 03/07 1812 106 110/66 03/07 1703 98.1 103 18 104/56 92 Room Air Intake & Output 03/08 1600 03/08 0400 03/07 1600 03/07 0400 03/06 1600 03/06 0400 Intake Total 120 Output Total 200 Balance -200 120 Intake, Oral 120 Output, Urine 200 Patient 160 lb Weight Physical Exam General Appearance: well developed/nourished, no apparent distress, alert Head: atraumatic, normal appearance Eyes: Bilateral: normal appearance. Ears, Nose, Throat: normal ENT inspection Neck: normal inspection, supple Respiratory: chest non-tender, no respiratory distress, quiet respiration, decreased breath sounds, decreased BS L base Cardiovascular: murmur, friction rub (none), irregularly irregular Gastrointestinal: normal bowel sounds, soft, non-tender, no organomegaly Back: normal inspection Extremities: pedal edema (1+) Neurologic/Psych: no motor/sensory deficits, awake, alert, oriented x 3, normal mood/affect, psychosocial rehabilitation counselor II-XII nml as tested Skin: intact, normal color, warm/dry Lymphatic: no anterior cervical shakir Results Pertinent Lab Results: Laboratory Tests 03/08 03/08 0620 0030 Chemistry Sodium (137 - 145 mmol/L) 129 L Potassium (3.5 - 5.1 mmol/L) 4.5 Chloride (98 - 107 mmol/L) 96 L Carbon Dioxide (22 - 30 mmol/L) 21 L Anion Gap (5 - 16) 12 BUN (7 - 17 mg/dL) 45 H Creatinine (0.5 - 1.0 mg/dL) 2.7 H Estimated GFR (>60 ml/min) 17 L BUN/Creatinine Ratio (7 - 25 %) 16.7 Troponin I (< 0.11 ng/ml) 0.01 0.01 Coagulation PT (9.4 - 12.5 SEC) 32.6 H INR (0.90 - 1.19) 3.14 H Hematology CBC w Diff NO MAN DIFF REQ WBC (4.8 - 10.8 /CUMM) 6.3 RBC (4.20 - 5.40 /CUMM) 2.85 L Hgb (12.0 - 16.0 G/DL) 8.5 L Hct (37 - 47 %) 25.4 L MCV (81.0 - 99.0 FL) 89.2 MCH (27.0 - 31.0 PG) 30.0 RDW (11.5 - 14.5 %) 17.5 H Plt Count (130 - 400 /CUMM) 169 MPV (7.4 - 10.4 FL) 9.4 Gran % (42.2 - 75.2 %) 83.5 H Lymphocytes % (20.5 - 51.1 %) 6.7 L Monocytes % (1.7 - 9.3 %) 6.6 Eosinophils % (0 - 5 %) 2.3 Basophils % (0.0 - 2.0 %) 0.9 Absolute Granulocytes (1.4 - 6.5 /CUMM) 5.3 Absolute Lymphocytes (1.2 - 3.4 /CUMM) 0.4 L Absolute Monocytes (0.10 - 0.60 /CUMM) 0.4 Absolute Eosinophils (0.0 - 0.7 /CUMM) 0.1 Absolute Basophils (0.0 - 0.2 /CUMM) 0.1 PUBS MCHC (33.0 - 37.0 G/DL) 33.6 03/07 1739 Chemistry Sodium (137 - 145 mmol/L) 131 L Potassium (3.5 - 5.1 mmol/L) 4.8 Chloride (98 - 107 mmol/L) 95 L Carbon Dioxide (22 - 30 mmol/L) 22 Anion Gap (5 - 16) 13 BUN (7 - 17 mg/dL) 44 H Creatinine (0.5 - 1.0 mg/dL) 2.7 H Estimated GFR (>60 ml/min) 17 L BUN/Creatinine Ratio (7 - 25 %) 16.3 Glucose (65 - 99 mg/dL) 110 H Calcium (8.4 - 10.2 mg/dL) 9.5 Total Bilirubin (0.2 - 1.3 mg/dL) 0.8 AST (14 - 36 U/L) 17 ALT (9 - 52 U/L) 24 Alkaline Phosphatase (<127 U/L) 112 Troponin I (< 0.11 ng/ml) < 0.01 [id number] Pept (<125 pg/mL) 46379 H Total Protein (6.3 - 8.2 g/dL) 5.4 L Albumin (3.5 - 5.0 g/dL) 3.0 L Globulin (1.9 - 4.2 gm/dL) 2.4 Albumin/Globulin Ratio (1.1 - 2.2 %) 1.3 Hematology CBC w Diff NO MAN DIFF REQ WBC (4.8 - 10.8 /CUMM) 9.9 RBC (4.20 - 5.40 /CUMM) 3.34 L Hgb (12.0 - 16.0 G/DL) 9.9 L Hct (37 - 47 %) 30.1 L MCV (81.0 - 99.0 FL) 90.2 MCH (27.0 - 31.0 PG) 29.6 RDW (11.5 - 14.5 %) 17.3 H Plt Count (130 - 400 /CUMM) 204 MPV (7.4 - 10.4 FL) 8.9 Gran % (42.2 - 75.2 %) 93.5 H Lymphocytes % (20.5 - 51.1 %) 2.1 L Monocytes % (1.7 - 9.3 %) 3.9 Eosinophils % (0 - 5 %) 0.4 Basophils % (0.0 - 2.0 %) 0.1 Absolute Granulocytes (1.4 - 6.5 /CUMM) 9.3 H Absolute Lymphocytes (1.2 - 3.4 /CUMM) 0.2 L Absolute Monocytes (0.10 - 0.60 /CUMM) 0.4 Absolute Eosinophils (0.0 - 0.7 /CUMM) 0 Absolute Basophils (0.0 - 0.2 /CUMM) 0 PUBS MCHC (33.0 - 37.0 G/DL) 32.8 L Imaging/Other Studies: CXR: FINDINGS: Single AP view of the chest demonstrates pulmonary hypoinflation and bronchovascular crowding. Newly identified is a small to moderate left-sided pleural effusion. Left basilar opacification is nonspecific and could reflect atelectasis although superimposed infection cannot be excluded. There is stable prominence of the cardiac silhouette without overt pulmonary edema. No pneumothoraces. No visible acute osseous abnormality. IMPRESSION: Blunting of the left costophrenic angle, suggestive of a small to moderate left-sided pleural effusion. Stable cardiomegaly, without overt pulmonary edema. Left basilar opacification is nonspecific and could reflect atelectasis although superimposed infection cannot be excluded in the appropriate clinical setting. Assessment/Plan Assessment/Recommendations Assessment: 1. CKD: severe, advanced stage 4, due to presumed HTN nephrosclerosis & ? cardiorenal syndrome; can't r/o chronic GN but previous serologic eval unrevealing & SIEP neg for paraprotein. Renal function stable @ baseline & no indication for renal bx. No current indicaton for renal replacement. 2. Volume overload: likely due to CHF & CKD; needs diuresis. 3. Hyponatremia: mild & chronic; needs fluid restriction. 4. Anemia: presumed due to CKD; needs Fe stores checked & will increase EPO in hosp. Recommendations: 1. continue Lasix 2. 800 ml fluid restriction 3. Ferritin & Fe sat 4. EPO 15, 000 units sc qwk
[2016-03-08 12:58] LABS: PT 27.4 SEC (9.4-12.5)
[2016-03-08 15:51] VITALS: BP 120/50
[2016-03-08] MEDS ORDERED: COUMADIN3 M1 PO (16:56)
[2016-03-08] MEDS ORDERED: COUMADIN1 M1 PO (16:57)
--- NOTE | 2016-03-08 18:02 | Event Note ---
Event Note Event Note: The patient was noted to develop atrial fibrillation with rapid ventricular rate. She has been started on IV heparin. She is comfortable and denies any current complaints. The heart rate remains mildly elevated. Recommendations: * Agree with IV heparin per protocol. * Continue labetalol for rate control * Start. Diltiazem 30 mg every 6 hours * Discontinue amlodipine. * Additional IV doses of diltiazem can be given if needed.
[2016-03-08 22:00] VITALS: BP 140/80
--- NOTE | 2016-03-09 07:37 | PN- Housestaff ---
Subjective Follow-up For: Acute exacerbation of HFpEF Tele-Events Since Last Visit: Atrial fibrillation, rate 98-122, bundle branch block, no events Subjective: Patient seen and examined. Has some improvement in her shortness of breath compared to yesterday. Denies headache, nausea, vomiting, dizziness, lightheadedness, chest pain, palpitation, abdominal pain, urinary symptoms. Vital signs stable. No overnight events reported. Review of Systems Constitutional: Denies: see HPI. Objective Last 24 Hrs of Vital Signs/I&O Vital Signs Date Time Temp Pulse Resp B/P Pulse O2 O2 Flow FiO2 Ox Delivery Rate 03/09 1351 Room Air Room Air 03/09 1011 88 118/70 03/09 0800 92 Room Air Room Air 03/09 08 98.0 88 20 118/70 90 Room Air 03/08 2200 98.0 85 18 140/80 95 Room Air 03/08 2110 85 140/80 Intake & Output 03/09 1600 03/09 0800 03/09 0000 Intake Total 340 138 Output Total 500 500 625 Balance -160 -500 -487 Intake, IV 18 Intake, Oral 340 120 Output, Urine 500 500 625 Patient 157 lb Weight Physical Exam General Appearance: Alert, Oriented X3, Cooperative, No Acute Distress Skin: No Rashes, No Breakdown, No Significant Lesion HEENT: Atraumatic, PERRLA, EOMI, Mucous Membr. moist/pink Neck: Supple, No JVD, No thryomegaly, +2 Carotid Pulse wo Bruit, No LAD Lymphatic: Axillary nl, Cervical nl Cardiovascular: irregular. Systolic murmur. Lungs: Normal Air Movement, rales bilaterally Abdomen: Normal Bowel Sounds, Soft, No Tenderness, No Hepatospenomegaly, No Masses Neurological: Normal Speech, Strength at 5/5 X4 Ext, Normal Tone, Sensation Intact, Cranial Nerves 3-12 NL, Reflexes 2+ Extremities: No Clubbing, No Cyanosis, Normal Pulses, No Tenderness/Swelling, lower extremity edema noted Vascular: Normal Pulses, Pulses Symmetrical Current Medications: Current Medications Sig/Aaliyah Start time Last Medication Dose Route Stop Time Status Admin Artificial Tears 1 GTT TID PRN 03/08 1000 AC OPH Atorvastatin Calcium 20 MG 1700 03/08 1700 AC 03/08 PO 1624 Carvedilol 25 MG BID 03/07 2330 AC 03/09 PO 1011 Clobetasol Propionate 1 SEB BID PRN 03/08 1000 AC TOP Epoetin Edy 10,000 UNIT QMON 03/08 1130 03/08 [place] 1224 Epoetin Edy 2,000 UNIT QMON 03/08 1130 03/08 TN 1225 Epoetin Edy 3,000 UNIT QMON 03/08 1130 03/08 TN 1225 Ergocalciferol 50,000 IU QSUN 03/14 0700 AC PO Ferric Sodium 250 MG 1100 03/10 1100 CAN Gluconate Complex IV 03/13 1259 Sodium Chloride 250 ML Ferric Sodium 250 MG 1100 03/09 1100 DC Gluconate Complex IV 03/12 1259 Sodium Chloride 100 ML Ferric Sodium 250 MG 1100 03/09 1100 AC 03/09 Gluconate Complex IV 03/12 1259 1530 Sodium Chloride 250 ML Ferric Sodium 250 MG DAILY 03/09 1030 DC Gluconate Complex IV 03/12 1001 Furosemide 80 MG 7:30 AM, & 4:30 PM 03/08 1630 03/09 IV 0637 Nystatin 1 SEB BID 03/08 1313 03/09 TOP 1012 Senna 374 MG AT BEDTIME 03/08 2200 03/08 PO 2109 Sodium Chloride 1,000 MG BID 03/07 2236 DE 03/08 PO 2111 Temazepam 15 MG AT BEDTIME 03/07 2245 03/08 PO 2110 Trazodone HCl 25 MG Q4H PRN 03/07 2245 AC PO Warfarin Sodium 5 MG COUMADIN 1700 ONE 03/09 1700 AC PO 03/09 1701 Warfarin Sodium 3 MG COUMADIN 1700 ONE 03/08 1700 DE 03/08 PO 03/08 1701 1737 Last 24 Hrs of Lab/Saad Results Last 24 Hrs of Labs/Mics: Laboratory Tests 03/09/16 0810: Anion Gap 12, Estimated GFR 17 L, BUN/Creatinine Ratio 17.4 03/09/16 0810: Anion Gap 12, Estimated GFR 17 L, BUN/Creatinine Ratio 17.0, TIBC 281, Ferritin 16.4, PT 22.5 H, INR 2.16 H Assessment/Plan Assessment: This is a 89-year-old lady with past medical history significant for chronic atrial fibrillation, HFpEF, Hypertension who presented to the hospital with worsening edema in UEs and LEs along with dyspnea. Problem list: 1-Acute Hfpef exacerbation 2-Chronic A.fib on Warfarin, Supratherapeutic INR on admission 3-CKD Plan: * Telemtry monitor * Is&Os, daily Wts * C/W Lasix 80MG IV BID * Echo pending * Alfredo BE[place] * Nephro consult appreciated:Fluid restriction 800ML daily, NaCl tabs discontinued, was started on a fe gluconate 50 mg IV daily for 4 doses. Test all stools for Hemoccult. * INR 2.16 today will administer 5 mg Warfarin; INR tomorrow morning * C/W Carvediolol * DNI/DNR * DVT PPX: On Warfarin with therapeutic INR Problem List: 1. CHF exacerbation Pain Ratin Pain Location: NA Pain Goal: Remain pain free Pain Plan: NA Tomorrow's Labs & Rationales: BEP to monitor creatinine and electrolytes INR, patient is on warfarin.
[2016-03-09 08:00] VITALS: BP 118/70
[2016-03-09 08:41] LABS: PT 22.5 SEC (9.4-12.5)
--- NOTE | 2016-03-09 10:22 | PN- Nephrology ---
Assessment/Plan Assessment: 1. CKD: severe, stage 4; stable w/o renal replacement need 2. Hyponatremia: mild w volume overload; continue fluid restriction. No benefit for NaCl supplementation & will d/c po NaCl tabs 3. Volume overload: due to CHF & CKD; continue diuresis & Na restriction 4. Anemia: due to CKD but Fe stores low; continue EPO q wk & add IV Fe Suggestion: 1. d/c po NaCl tabs --> done 2. Fe gluconate 250 mg IV q day x 4 doses 3. check stool OB 4. repeat CBC Subjective Subjective: Feeling better w less SOB No gross uremic sx Objective Vital Signs and I&Os Vital Signs Date Time Temp Pulse Resp B/P Pulse O2 O2 Flow FiO2 Ox Delivery Rate 03/09 0800 98.0 88 20 118/70 90 Room Air 03/08 2200 98.0 85 18 140/80 95 Room Air 03/08 2110 85 140/80 03/08 1551 98.2 88 22 120/50 91 Room Air Intake & Output 03/09 1600 03/09 0400 03/08 1600 03/08 0400 03/07 1600 03/07 0400 Intake Total 138 614 120 Output Total 500 625 950 Balance -500 -757 -336 120 Intake, IV 18 14 Intake, Oral 120 600 120 Output, Urine 500 625 950 Patient 157 lb 160 lb Weight Physical Exam General Appearance: well developed/nourished, no apparent distress Head: atraumatic, normal appearance Ears, Nose, Throat: normal ENT inspection Neck: normal inspection Respiratory: decreased breath sounds (on left), rales (none) Cardiovascular: friction rub (none), irregularly irregular Abdomen: soft, non-tender, no organomegaly Extremities: swelling (1+) Neurologic/Psychiatric: awake, alert, oriented x 3 Current Medications: Current Medications Sig/Aaliyah Start time Last Medication Dose Route Stop Time Status Admin Artificial Tears 1 GTT TID PRN 03/08 1000 AC OPH Atorvastatin Calcium 20 MG 1700 03/08 1700 AC 03/08 PO 1624 Carvedilol 25 MG BID 03/07 2330 AC 03/08 PO 2110 Clobetasol Propionate 1 SEB BID PRN 03/08 1000 AC TOP Epoetin Edy 15,000 UNITS QMON 03/08 1130 CAN SC Epoetin Edy 10,000 UNIT QMON 03/08 1130 AC 03/08 SC 1224 Epoetin Edy 2,000 UNIT QMON 03/08 1130 03/08 [place] 1225 Epoetin Edy 3,000 UNIT QMON 03/08 1130 03/08 [place] 1225 Ergocalciferol 50,000 IU QSUN 03/14 0700 AC PO Furosemide 80 MG 7:30 AM, & 4:30 PM 03/08 1630 AC 03/09 IV 0637 Furosemide 40 MG 7:30 AM, & 4:30 PM 03/08 0730 DC 03/08 IV 0805 Nystatin 1 SEB BID 03/08 1313 03/08 TOP 2111 Senna 374 MG AT BEDTIME 03/08 2200 AC 03/08 PO 210 Sodium Chloride 1,000 MG BID 03/07 2236 AC 03/08 PO 211 Temazepam 15 MG AT BEDTIME 03/07 2245 03/08 PO 211 Trazodone HCl 25 MG Q4H PRN 03/07 224 AC PO Warfarin Sodium 5 MG COUMADIN 1700 ONE 03/09 1700 AC PO 03/09 1701 Warfarin Sodium 3 MG COUMADIN 1700 ONE 03/08 1700 DC 03/08 PO 03/08 1701 1737 Results Pertinent Lab Results: Laboratory Tests 03/09 03/09 03/08 03/08 0810 0810 1555 1210 Chemistry Sodium (137 - 145 mmol/L) 133 L 133 L Potassium (3.5 - 5.1 mmol/L) 4.3 4.3 Chloride (98 - 107 mmol/L) 98 98 Carbon Dioxide (22 - 30 mmol/L) 24 23 Anion Gap (5 - 16) 12 12 BUN (7 - 17 mg/dL) 47 H 46 H Creatinine (0.5 - 1.0 mg/dL) 2.7 H 2.7 H Estimated GFR (>60 ml/min) 17 L 17 L BUN/Creatinine Ratio (7 - 25 %) 17.4 17.0 TIBC (265 - 497 ug/dL) 281 Ferritin (11.1 - 264 ng/mL) 16.4 Coagulation PT (9.4 - 12.5 SEC) 22.5 H 27.4 H INR (0.90 - 1.19) 2.16 H 2.63 H Urines Ur Random Creatinine (mg/dL) 63.2 U Random Total Protein (0 - 12 mg/dL) 73.8 H Protein/Creatinin Ratio (< 0.2) 1.1 H 03/08 03/08 03/08 1132 0620 0030 Chemistry Sodium (137 - 145 mmol/L) 129 L Potassium (3.5 - 5.1 mmol/L) 4.5 Chloride (98 - 107 mmol/L) 96 L Carbon Dioxide (22 - 30 mmol/L) 21 L Anion Gap (5 - 16) 12 BUN (7 - 17 mg/dL) 45 H Creatinine (0.5 - 1.0 mg/dL) 2.7 H Estimated GFR (>60 ml/min) 17 L BUN/Creatinine Ratio (7 - 25 %) 16.7 Iron (37 - 170 ug/dL) 17 L TIBC (265 - 497 ug/dL) 267 Troponin I (< 0.11 ng/ml) 0.01 0.01 Coagulation PT (9.4 - 12.5 SEC) 32.6 H INR (0.90 - 1.19) 3.14 H Hematology CBC w Diff NO MAN DIFF REQ WBC (4.8 - 10.8 /CUMM) 6.3 RBC (4.20 - 5.40 /CUMM) 2.85 L Hgb (12.0 - 16.0 G/DL) 8.5 L Hct (37 - 47 %) 25.4 L MCV (81.0 - 99.0 FL) 89.2 MCH (27.0 - 31.0 PG) 30.0 RDW (11.5 - 14.5 %) 17.5 H Plt Count (130 - 400 /CUMM) 169 MPV (7.4 - 10.4 FL) 9.4 Gran % (42.2 - 75.2 %) 83.5 H Lymphocytes % (20.5 - 51.1 %) 6.7 L Monocytes % (1.7 - 9.3 %) 6.6 Eosinophils % (0 - 5 %) 2.3 Basophils % (0.0 - 2.0 %) 0.9 Absolute Granulocytes (1.4 - 6.5 /CUMM) 5.3 Absolute Lymphocytes (1.2 - 3.4 /CUMM) 0.4 L Absolute Monocytes (0.10 - 0.60 /CUMM) 0.4 Absolute Eosinophils (0.0 - 0.7 /CUMM) 0.1 Absolute Basophils (0.0 - 0.2 /CUMM) 0.1 PUBS MCHC (33.0 - 37.0 G/DL) 33.6 Urines Ur Random Creatinine Cancelled U Random Total Protein Cancelled 03/07 1739 Chemistry Sodium (137 - 145 mmol/L) 131 L Potassium (3.5 - 5.1 mmol/L) 4.8 Chloride (98 - 107 mmol/L) 95 L Carbon Dioxide (22 - 30 mmol/L) 22 Anion Gap (5 - 16) 13 BUN (7 - 17 mg/dL) 44 H Creatinine (0.5 - 1.0 mg/dL) 2.7 H Estimated GFR (>60 ml/min) 17 L BUN/Creatinine Ratio (7 - 25 %) 16.3 Glucose (65 - 99 mg/dL) 110 H Calcium (8.4 - 10.2 mg/dL) 9.5 Total Bilirubin (0.2 - 1.3 mg/dL) 0.8 AST (14 - 36 U/L) 17 ALT (9 - 52 U/L) 24 Alkaline Phosphatase (<127 U/L) 112 Troponin I (< 0.11 ng/ml) < 0.01 [id number] Pept (<125 pg/mL) 54478 H Total Protein (6.3 - 8.2 g/dL) 5.4 L Albumin (3.5 - 5.0 g/dL) 3.0 L Globulin (1.9 - 4.2 gm/dL) 2.4 Albumin/Globulin Ratio (1.1 - 2.2 %) 1.3 Hematology CBC w Diff NO MAN DIFF REQ WBC (4.8 - 10.8 /CUMM) 9.9 RBC (4.20 - 5.40 /CUMM) 3.34 L Hgb (12.0 - 16.0 G/DL) 9.9 L Hct (37 - 47 %) 30.1 L MCV (81.0 - 99.0 FL) 90.2 MCH (27.0 - 31.0 PG) 29.6 RDW (11.5 - 14.5 %) 17.3 H Plt Count (130 - 400 /CUMM) 204 MPV (7.4 - 10.4 FL) 8.9 Gran % (42.2 - 75.2 %) 93.5 H Lymphocytes % (20.5 - 51.1 %) 2.1 L Monocytes % (1.7 - 9.3 %) 3.9 Eosinophils % (0 - 5 %) 0.4 Basophils % (0.0 - 2.0 %) 0.1 Absolute Granulocytes (1.4 - 6.5 /CUMM) 9.3 H Absolute Lymphocytes (1.2 - 3.4 /CUMM) 0.2 L Absolute Monocytes (0.10 - 0.60 /CUMM) 0.4 Absolute Eosinophils (0.0 - 0.7 /CUMM) 0 Absolute Basophils (0.0 - 0.2 /CUMM) 0 PUBS MCHC (33.0 - 37.0 G/DL) 32.8 L Imaging/Other Studies: CXR: Blunting of the left costophrenic angle, suggestive of a small to moderate left-sided pleural effusion. Stable cardiomegaly, without overt pulmonary edema. Left basilar opacification is nonspecific and could reflect atelectasis although superimposed infection cannot be excluded in the appropriate clinical setting.
--- NOTE | 2016-03-09 14:40 | PN- Cardiology ---
Subjective Subjective: Feeling somewhat better. Shortness of breath improving. No chest pain. No palpitations. No diaphoresis. Objective Vital Signs and I&Os Vital Signs Date Time Temp Pulse Resp B/P Pulse O2 O2 Flow FiO2 Ox Delivery Rate 03/09 1351 Room Air Room Air 03/09 1011 88 118/70 03/09 0800 92 Room Air Room Air 03/09 0800 98.0 88 20 118/70 90 Room Air 03/08 2200 98.0 85 18 140/80 95 Room Air 03/08 2110 85 140/80 03/08 1551 98.2 88 22 120/50 91 Room Air Intake & Output 03/09 1600 03/09 0800 03/09 0000 03/08 1600 03/08 0803/08 0000 Intake Total 340 138 614 120 Output Total 500 500 625 750 200 Balance -160 -500 -487 -136 -200 120 Intake, IV 18 14 Intake, Oral 340 120 600 120 Output, Urine 500 500 625 750 200 Patient 157 lb 160 lb Weight Physical Exam: Gen: The patient is in no acute distress HEENT: Normal nose, ears, and oropharynx. Pupils equal bilaterally. Conjunctiva normal. Neck: Supple with no JVD, no masses, and no thyromegaly Lungs: Bilateral rales with normal respiratory effort Heart: Irreg irreg, S1, S2, 2/6 systolic murmur. 2+ peripheral edema, 2+ pulses in the lower extremities bilaterally Abdomen: Soft, nontender, no masses. No hepatomegaly. No splenomegaly Extremities: No clubbing or cyanosis. Normal muscle strength in the upper and lower extremities Skin: Normal skin turgor with no skin ulcers or lesions noted. Neuro: Cranial nerves intact. Sensation intact Current Medications: Current Medications Sig/Aaliyah Start time Last Medication Dose Route Stop Time Status Admin Artificial Tears 1 GTT TID PRN 03/08 1000 AC OPH Atorvastatin Calcium 20 MG 1700 03/08 1700 AC 03/08 PO 1624 Carvedilol 25 MG BID 03/07 2330 AC 03/09 PO 1011 Clobetasol Propionate 1 SEB BID PRN 03/08 1000 AC TOP Epoetin Edy 10,000 UNIT QMON 03/08 1130 AC 03/08 SC 1224 Epoetin Edy 2,000 UNIT QMON 03/08 1130 AC 03/08 SC 1225 Epoetin Edy 3,000 UNIT QMON 03/08 1130 AC 03/08 [place] 1225 Ergocalciferol 50,000 IU QSUN 03/14 0700 AC PO Ferric Sodium 250 MG 1100 03/10 1100 CAN Gluconate Complex IV 03/13 1259 Sodium Chloride 250 ML Ferric Sodium 250 MG 1100 03/09 1100 DC Gluconate Complex IV 03/12 1259 Sodium Chloride 100 ML Ferric Sodium 250 MG 1100 03/09 1100 AC Gluconate Complex IV 03/12 1259 Sodium Chloride 250 ML Ferric Sodium 250 MG DAILY 03/09 1030 DC Gluconate Complex IV 03/12 1001 Furosemide 80 MG 7:30 AM, & 4:30 PM 03/08 1630 AC 03/09 IV 0637 Furosemide 40 MG 7:30 AM, & 4:30 PM 03/08 0730 DC 03/08 IV 0805 Nystatin 1 SEB BID 03/08 1313 03/09 TOP 1012 Senna 374 MG AT BEDTIME 03/08 2200 AC 03/08 PO 2109 Sodium Chloride 1,000 MG BID 03/07 2236 DC 03/08 PO 2111 Temazepam 15 MG AT BEDTIME 03/07 2245 AC 03/08 PO 2110 Trazodone HCl 25 MG Q4H PRN 03/07 2245 AC PO Warfarin Sodium 5 MG COUMADIN 1700 ONE 03/09 1700 AC PO 03/09 1701 Warfarin Sodium 3 MG COUMADIN 1700 ONE 03/08 1700 DC 03/08 PO 03/08 1701 1737 Results Last 48 Hrs of Labs/Mics: Laboratory Tests 03/09/16 0810: Anion Gap 12, Estimated GFR 17 L, BUN/Creatinine Ratio 17.4 03/09/16 0810: Anion Gap 12, Estimated GFR 17 L, BUN/Creatinine Ratio 17.0, TIBC 281, Ferritin 16.4, PT 22.5 H, INR 2.16 H 03/08/16 1555: Ur Random Creatinine 63.2, U Random Total Protein 73.8 H, Protein/Creatinin Ratio 1.1 H 03/08/16 1210: PT 27.4 H, INR 2.63 H 03/08/16 1132: Ur Random Creatinine Cancelled, U Random Total Protein Cancelled 03/08/16 0620: Anion Gap 12, Estimated GFR 17 L, BUN/Creatinine Ratio 16.7, Iron 17 L, TIBC 267, Troponin I 0.01, CBC w Diff NO MAN DIFF REQ, RBC 2.85 L, MCV 89.2, MCH 30.0, RDW 17.5 H, MPV 9.4, Gran % 83.5 H, Lymphocytes % 6.7 L, Monocytes % 6.6, Eosinophils % 2.3, Basophils % 0.9, Absolute Granulocytes 5.3, Absolute Lymphocytes 0.4 L, Absolute Monocytes 0.4, Absolute Eosinophils 0.1, Absolute Basophils 0.1, PUBS MCHC 33.6 03/08/16 0030: Troponin I 0.01, PT 32.6 H, INR 3.14 H 03/07/16 1739: Anion Gap 13, Estimated GFR 17 L, BUN/Creatinine Ratio 16.3, Glucose 110 H, Calcium 9.5, Total Bilirubin 0.8, AST 17, ALT 24, Alkaline Phosphatase 112, Troponin I < 0.01, [id number] Pept 61152 H, Total Protein 5.4 L, Albumin 3.0 L, Globulin 2.4, Albumin/Globulin Ratio 1.3, CBC w Diff NO MAN DIFF REQ, RBC 3.34 L, MCV 90.2, MCH 29.6, RDW 17.3 H, MPV 8.9, Gran % 93.5 H, Lymphocytes % 2.1 L, Monocytes % 3.9, Eosinophils % 0.4, Basophils % 0.1, Absolute Granulocytes 9.3 H, Absolute Lymphocytes 0.2 L, Absolute Monocytes 0.4, Absolute Eosinophils 0, Absolute Basophils 0, PUBS MCHC 32.8 L Assessment/Plan Assessment/Plan Assessment: 1. Chronic atrial fibrillation, anticoagulated on warfarin. 2. Moderate pulmonary hypertension with moderate to severe tricuspid regurgitation 3. Mild aortic stenosis 4. Acute exacerbation of HFpEF, improving Plan: * Continue IV Lasix * Follow input and output with daily weights * Check basic metabolic profile daily * Continue carvedilol for rate control * Continue warfarin for INR 2-3 Continue telemetry? Yes
[2016-03-09 15:30] VITALS: BP 132/62
[2016-03-09 23:00] VITALS: BP 132/62
[2016-03-10 07:58] LABS: ABSOLUTE BASOPHIL COUNT 0 /CUMM (0.0-0.2); ABSOLUTE EOSINOPHIL COUNT 0.3 /CUMM (0.0-0.7); ABSOLUTE GRANULOCYTE CT 3.3 /CUMM (1.4-6.5); ABSOLUTE LYMPH COUNT 0.6 /CUMM (1.2-3.4); ABSOLUTE MONOCYTE COUNT 0.4 /CUMM (0.10-0.60); BASOPHIL % 0.7 % (0.0-2.0); EOSINOPHIL % 6.5 % (0-5); GRANULOCYTE % 70.9 % (42.2-75.2); HEMATOCRIT 27.3 % (37-47); MEAN CORPUSCULAR HGB 29.8 PG (27.0-31.0); MEAN CORPUSCULAR HGB CONC 33.3 G/DL (33.0-37.0); MEAN CORPUSCULAR VOLUME 89.6 FL (81.0-99.0); MEAN PLATELET VOLUME 9.5 FL (7.4-10.4); PLATELET COUNT 178 /CUMM (130-400); RBC DISTRIBUTION WIDTH 17.4 % (11.5-14.5); RED BLOOD CELL CT 3.04 /CUMM (4.20-5.40); WHITE BLOOD CELL COUNT 4.6 /CUMM (4.8-10.8)
[2016-03-10 08:00] VITALS: BP 138/60
--- NOTE | 2016-03-10 08:01 | PN- Housestaff ---
Subjective Follow-up For: -Acute exacerbation of HFpEF -CKD stage 4 Tele-Events Since Last Visit: Atrial fibrillation, rate 97, bundle-branch block Subjective: Patient seen and examined. Reports feeling weak but is better compared to yesterday. Her lower Extremity edema and upper extremity edema has improved. Her shortness of breath has improved since admission. Denies headache, nausea, vomiting, dizziness, lightheadedness, palpitation, chest pain, chest pressure, abdominal pain, urinary symptoms. Vital signs stable. No overnight events reported. PT recommends short-term rehabilitation. Review of Systems Constitutional: Denies: see HPI. Objective Last 24 Hrs of Vital Signs/I&O Vital Signs Date Time Temp Pulse Resp B/P Pulse O2 O2 Flow FiO2 Ox Delivery Rate 03/10 1007 97 138/60 03/10 0800 97.8 97 20 138/60 90 Room Air 03/10 0000 Room Air 03/09 2300 97.7 97 24 132/62 91 Room Air 03/09 1530 98.0 87 20 132/62 92 Room Air Intake & Output 03/10 1600 03/10 0800 03/10 0000 Intake Total 360 150 400 Output Total 550 1000 800 Balance -190 -850 -400 Intake, IV 0 0 Intake, Oral 360 150 400 Number 0 0 Bowel Movements Output, Urine 550 1000 800 Patient 156 lb Weight Physical Exam General Appearance: Alert, Oriented X3, Cooperative, No Acute Distress Skin: No Rashes, No Breakdown, No Significant Lesion HEENT: Atraumatic, PERRLA, EOMI, Mucous Membr. moist/pink Neck: Supple, No JVD, No thryomegaly, +2 Carotid Pulse wo Bruit, No LAD Lymphatic: Axillary nl, Cervical nl Cardiovascular: irregular, systolic murmur Lungs: rales b/l, decreased breath sounds Abdomen: Normal Bowel Sounds, Soft, No Tenderness, No Hepatospenomegaly, No Masses Neurological: Normal Tone, Sensation Intact, Cranial Nerves 3-12 NL, Reflexes 2+ Extremities: No Clubbing, No Cyanosis, Normal Pulses, lower extremity edema noted, improved compared to last physical exam, no tenderness Vascular: Normal Pulses, Pulses Symmetrical Current Medications: Current Medications Sig/Aaliyah Start time Last Medication Dose Route Stop Time Status Admin Acetaminophen 650 MG .STK-MED ONE 03/10 0104 DC PO 03/10 010 Acetaminophen 650 MG Q6PRN PRN 03/09 1715 AC 03/10 PO 1254 Artificial Tears 1 GTT TID PRN 03/08 1000 AC OPH Atorvastatin Calcium 20 MG 1700 03/08 1700 AC 03/09 PO 1641 Carvedilol 25 MG BID 03/07 2330 03/10 PO 1007 Clobetasol Propionate 1 SEB BID PRN 03/08 1000 AC TOP Epoetin Edy 10,000 UNIT QMON 03/08 1130 03/08 SC 1224 Epoetin Edy 2,000 UNIT QMON 03/08 1130 AC 03/08 SC 1225 Epoetin Edy 3,000 UNIT QMON 03/08 1130 03/08 SC 1225 Ergocalciferol 50,000 IU QSUN 03/14 0700 AC PO Ferric Sodium 250 MG 1100 03/09 1100 AC 03/10 Gluconate Complex IV 03/12 1259 1253 Sodium Chloride 250 ML Furosemide 80 MG 7:30 AM, & 4:30 PM 03/08 1630 03/10 IV 0801 Nystatin 1 SEB BID 03/08 1313 03/10 TOP 1007 Senna 374 MG AT BEDTIME 03/08 2200 03/09 PO 2149 Temazepam 15 MG AT BEDTIME 03/07 2245 03/09 PO 2149 Trazodone HCl 50 MG .STK-MED ONE 03/09 181 DC PO 03/09 1816 Trazodone HCl 25 MG Q4H PRN 03/07 2245 03/10 PO 0400 Warfarin Sodium 7 MG COUMADIN 1700 ONE 03/10 1700 AC PO 03/10 1701 Warfarin Sodium 5 MG COUMADIN 1700 ONE 03/09 1700 DC 03/09 PO 03/09 1701 1641 Last 24 Hrs of Lab/Saad Results Last 24 Hrs of Labs/Mics: Laboratory Tests 03/10/16 0610: Calcium 9.5, Phosphorus 5.7 H, Magnesium 2.0 03/10/16 0610: Anion Gap 11, Estimated GFR 17 L, BUN/Creatinine Ratio 17.7, PT 22.3 H, INR 2.14 H, CBC w Diff NO MAN DIFF REQ, RBC 3.04 L, MCV 89.6, MCH 29.8, RDW 17.4 H, MPV 9.5, Gran % 70.9, Lymphocytes % 12.5 L, Monocytes % 9.4 H, Eosinophils % 6.5 H, Basophils % 0.7, Absolute Granulocytes 3.3, Absolute Lymphocytes 0.6 L, Absolute Monocytes 0.4, Absolute Eosinophils 0.3, Absolute Basophils 0, PUBS MCHC 33.3 Assessment/Plan Assessment: This is a 89-year-old lady with past medical history significant for chronic atrial fibrillation, HFpEF, Hypertension who presented to the hospital with worsening edema in UEs and LEs along with dyspnea. Problem list: 1-Acute Hfpef exacerbation 2-Chronic A.fib on Warfarin, Supratherapeutic INR on admission 3-CKD stage IVstable Plan: * Telemtry monitor * Is&Os, daily Wts * Echo 03/09/2016:Normal size left ventricle. Mild concentric left ventricular hypertrophy. Normal left ventricular ejection fraction visually estimated at > 60%. Mild right ventricular dilatation. Moderate right atrial dilatation. Mild left atrial dilatation. Severe thickening/calcification of the posterior mitral valve leaflet. Mild mitral regurgitation. Diffuse thickening of the aortic valve cusps with reduced excursion. Mild aortic stenosis. Mild aortic regurgitation. Moderate to severe tricuspid regurgitation. Right ventricular systolic pressure estimated to be elevated at 54 mmHg. Trace pulmonic regurgitation. * Will repeat chest x-ray tomorrow * C/W Lasix 80MG IV BID; consider change to by mouth * Daily BEP * Nephro consult appreciated:Fluid restriction 800ML daily, NaCl tabs discontinued, was started on a fe gluconate 50 mg IV daily for 4 doses. Test all stools for Hemoccult. Continue with EPO sc q wk. * INR 2.14 today will administer 7 mg Warfarin; INR tomorrow morning * C/W Carvediolol * DNI/DNR * DVT PPX: On Warfarin with therapeutic INR Problem List: 1. CHF exacerbation 2. Chronic renal insufficiency Pain Ratin Pain Location: NA Pain Goal: Remain pain free Pain Plan: NA; patient is pain-free Tomorrow's Labs & Rationales: BEP to monitor electrolytes and creatinine. INR: Patient is on warfarin
[2016-03-10 08:17] LABS: PT 22.3 SEC (9.4-12.5)
--- NOTE | 2016-03-10 09:53 | PN- Nephrology ---
Assessment/Plan Assessment: 1. CKD: stable severe, stage 4; no renal replacement need 2. Hyponatremia: mild w volume overload; improved w fluid restriction 3. Volume overload: due to CHF & CKD; improving --> ? change to po Lasix 4. 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 Fe gluconate IV 2. EPO sc q wk 3. check stool OB 4. favor changing Lasix IV --> po Subjective Subjective: No SOB; leg swelling better Eating w/o uremic sx Constipated - no melena, hematochezia, or episdataxis Objective Vital Signs and I&Os Vital Signs Date Time Temp Pulse Resp B/P Pulse O2 O2 Flow FiO2 Ox Delivery Rate 03/10 0800 97.8 97 20 138/60 90 Room Air 03/10 0000 Room Air 03/09 2300 97.7 97 24 132/62 91 Room Air 03/09 1530 98.0 87 20 132/62 92 Room Air 03/09 1351 Room Air Room Air 03/09 1011 88 118/70 Intake & Output 03/10 1600 03/10 0400 03/09 1600 03/09 0400 03/08 1600 03/08 0400 Intake Total 150 400 340 138 614 120 Output Total 8002 443 5740 625 950 Balance -850 -400 -660 -487 -336 120 Intake, IV 0 0 18 14 Intake, Oral 150 400 340 120 600 120 Number 0 0 Bowel Movements Output, Urine 2188 834 9547 625 950 Patient 156 lb 157 lb 160 lb Weight Physical Exam General Appearance: well developed/nourished, no apparent distress Head: atraumatic, normal appearance Ears, Nose, Throat: normal ENT inspection Neck: normal inspection Respiratory: decreased breath sounds (L base), rales (L base) Cardiovascular: murmur, irregularly irregular Abdomen: soft, non-tender, no organomegaly Extremities: swelling (trace) Neurologic/Psychiatric: awake, alert Current Medications: Current Medications Sig/Aaliyah Start time Last Medication Dose Route Stop Time Status Admin Acetaminophen 650 MG .STK-MED ONE 03/10 010 DC PO 03/10 010 Acetaminophen 650 MG Q6PRN PRN 03/09 1715 AC 03/10 PO 0100 Artificial Tears 1 GTT TID PRN 03/08 1000 AC OPH Atorvastatin Calcium 20 MG 1700 03/08 1700 AC 03/09 PO 1641 Carvedilol 25 MG BID 03/07 2330 03/09 PO 2149 Clobetasol Propionate 1 SEB BID PRN 03/08 1000 AC TOP Epoetin Edy 10,000 UNIT QMON 03/08 1130 AC 03/08 [place] 1224 Epoetin Edy 2,000 UNIT QMON 03/08 1130 AC 03/08 [place] 1225 Epoetin Edy 3,000 UNIT QMON 03/08 1130 03/08 [place] 1225 Ergocalciferol 50,000 IU QSUN 03/14 0700 AC PO Ferric Sodium 250 MG 1100 03/10 1100 CAN Gluconate Complex IV 03/13 1259 Sodium Chloride 250 ML Ferric Sodium 250 MG 1100 03/09 1100 DC Gluconate Complex IV 03/12 1259 Sodium Chloride 100 ML Ferric Sodium 250 MG 1100 03/09 1100 AC 03/09 Gluconate Complex IV 03/12 1259 1530 Sodium Chloride 250 ML Ferric Sodium 250 MG DAILY 03/09 1030 DC Gluconate Complex IV 03/12 1001 Furosemide 80 MG 7:30 AM, & 4:30 PM 03/08 1630 03/10 IV 0801 Nystatin 1 SEB BID 03/08 1313 03/09 TOP 2149 Senna 374 MG AT BEDTIME 03/08 2200 03/09 PO 2149 Sodium Chloride 1,000 MG BID 03/07 2236 [place] 03/08 PO 2111 Temazepam 15 MG AT BEDTIME 03/07 2245 03/09 PO 2149 Trazodone HCl 50 MG .STK-MED ONE 03/09 1814 DC PO 03/09 1816 Trazodone HCl 25 MG Q4H PRN 03/07 2245 03/10 PO 0400 Warfarin Sodium 5 MG COUMADIN 1700 ONE 03/09 1700 [place] 03/09 PO 03/09 1701 1641 Results Pertinent Lab Results: Laboratory Tests 03/10 03/10 03/09 0610 0610 0810 Chemistry Sodium (137 - 145 mmol/L) 135 L 133 L Potassium (3.5 - 5.1 mmol/L) 4.2 4.3 Chloride (98 - 107 mmol/L) 100 98 Carbon Dioxide (22 - 30 mmol/L) 24 24 Anion Gap (5 - 16) 11 12 BUN (7 - 17 mg/dL) 46 H 47 H Creatinine (0.5 - 1.0 mg/dL) 2.6 H 2.7 H Estimated GFR (>60 ml/min) 17 L 17 L BUN/Creatinine Ratio (7 - 25 %) 17.7 17.4 Calcium (8.4 - 10.2 mg/dL) 9.5 Phosphorus (2.5 - 4.5 mg/dL) 5.7 H Magnesium (1.6 - 2.3 mg/dL) 2.0 Coagulation PT (9.4 - 12.5 SEC) 22.3 H INR (0.90 - 1.19) 2.14 H Hematology CBC w Diff NO MAN DIFF REQ WBC (4.8 - 10.8 /CUMM) 4.6 L RBC (4.20 - 5.40 /CUMM) 3.04 L Hgb (12.0 - 16.0 G/DL) 9.1 L Hct (37 - 47 %) 27.3 L MCV (81.0 - 99.0 FL) 89.6 MCH (27.0 - 31.0 PG) 29.8 RDW (11.5 - 14.5 %) 17.4 H Plt Count (130 - 400 /CUMM) 178 MPV (7.4 - 10.4 FL) 9.5 Gran % (42.2 - 75.2 %) 70.9 Lymphocytes % (20.5 - 51.1 %) 12.5 L Monocytes % (1.7 - 9.3 %) 9.4 H Eosinophils % (0 - 5 %) 6.5 H Basophils % (0.0 - 2.0 %) 0.7 Absolute Granulocytes (1.4 - 6.5 /CUMM) 3.3 Absolute Lymphocytes (1.2 - 3.4 /CUMM) 0.6 L Absolute Monocytes (0.10 - 0.60 /CUMM) 0.4 Absolute Eosinophils (0.0 - 0.7 /CUMM) 0.3 Absolute Basophils (0.0 - 0.2 /CUMM) 0 PUBS MCHC (33.0 - 37.0 G/DL) 33.3 03/09 03/08 03/08 03/08 0810 1555 1210 1132 Chemistry Sodium (137 - 145 mmol/L) 133 L Potassium (3.5 - 5.1 mmol/L) 4.3 Chloride (98 - 107 mmol/L) 98 Carbon Dioxide (22 - 30 mmol/L) 23 Anion Gap (5 - 16) 12 BUN (7 - 17 mg/dL) 46 H Creatinine (0.5 - 1.0 mg/dL) 2.7 H Estimated GFR (>60 ml/min) 17 L BUN/Creatinine Ratio (7 - 25 %) 17.0 TIBC (265 - 497 ug/dL) 281 Ferritin (11.1 - 264 ng/mL) 16.4 Coagulation PT (9.4 - 12.5 SEC) 22.5 H 27.4 H INR (0.90 - 1.19) 2.16 H 2.63 H Urines Ur Random Creatinine (mg/dL) 63.2 Cancelled U Random Total Protein (0 - 12 mg/dL) 73.8 H Cancelled Protein/Creatinin Ratio (< 0.2) 1.1 H 03/08 03/08 0620 0030 Chemistry Sodium (137 - 145 mmol/L) 129 L Potassium (3.5 - 5.1 mmol/L) 4.5 Chloride (98 - 107 mmol/L) 96 L Carbon Dioxide (22 - 30 mmol/L) 21 L Anion Gap (5 - 16) 12 BUN (7 - 17 mg/dL) 45 H Creatinine (0.5 - 1.0 mg/dL) 2.7 H Estimated GFR (>60 ml/min) 17 L BUN/Creatinine Ratio (7 - 25 %) 16.7 Iron (37 - 170 ug/dL) 17 L TIBC (265 - 497 ug/dL) 267 Troponin I (< 0.11 ng/ml) 0.01 0.01 Coagulation PT (9.4 - 12.5 SEC) 32.6 H INR (0.90 - 1.19) 3.14 H Hematology CBC w Diff NO MAN DIFF REQ WBC (4.8 - 10.8 /CUMM) 6.3 RBC (4.20 - 5.40 /CUMM) 2.85 L Hgb (12.0 - 16.0 G/DL) 8.5 L Hct (37 - 47 %) 25.4 L MCV (81.0 - 99.0 FL) 89.2 MCH (27.0 - 31.0 PG) 30.0 RDW (11.5 - 14.5 %) 17.5 H Plt Count (130 - 400 /CUMM) 169 MPV (7.4 - 10.4 FL) 9.4 Gran % (42.2 - 75.2 %) 83.5 H Lymphocytes % (20.5 - 51.1 %) 6.7 L Monocytes % (1.7 - 9.3 %) 6.6 Eosinophils % (0 - 5 %) 2.3 Basophils % (0.0 - 2.0 %) 0.9 Absolute Granulocytes (1.4 - 6.5 /CUMM) 5.3 Absolute Lymphocytes (1.2 - 3.4 /CUMM) 0.4 L Absolute Monocytes (0.10 - 0.60 /CUMM) 0.4 Absolute Eosinophils (0.0 - 0.7 /CUMM) 0.1 Absolute Basophils (0.0 - 0.2 /CUMM) 0.1 PUBS MCHC (33.0 - 37.0 G/DL) 33.6 03/07 1739 Chemistry Sodium (137 - 145 mmol/L) 131 L Potassium (3.5 - 5.1 mmol/L) 4.8 Chloride (98 - 107 mmol/L) 95 L Carbon Dioxide (22 - 30 mmol/L) 22 Anion Gap (5 - 16) 13 BUN (7 - 17 mg/dL) 44 H Creatinine (0.5 - 1.0 mg/dL) 2.7 H Estimated GFR (>60 ml/min) 17 L BUN/Creatinine Ratio (7 - 25 %) 16.3 Glucose (65 - 99 mg/dL) 110 H Calcium (8.4 - 10.2 mg/dL) 9.5 Total Bilirubin (0.2 - 1.3 mg/dL) 0.8 AST (14 - 36 U/L) 17 ALT (9 - 52 U/L) 24 Alkaline Phosphatase (<127 U/L) 112 Troponin I (< 0.11 ng/ml) < 0.01 [id number] Pept (<125 pg/mL) 54028 H Total Protein (6.3 - 8.2 g/dL) 5.4 L Albumin (3.5 - 5.0 g/dL) 3.0 L Globulin (1.9 - 4.2 gm/dL) 2.4 Albumin/Globulin Ratio (1.1 - 2.2 %) 1.3 Hematology CBC w Diff NO MAN DIFF REQ WBC (4.8 - 10.8 /CUMM) 9.9 RBC (4.20 - 5.40 /CUMM) 3.34 L Hgb (12.0 - 16.0 G/DL) 9.9 L Hct (37 - 47 %) 30.1 L MCV (81.0 - 99.0 FL) 90.2 MCH (27.0 - 31.0 PG) 29.6 RDW (11.5 - 14.5 %) 17.3 H Plt Count (130 - 400 /CUMM) 204 MPV (7.4 - 10.4 FL) 8.9 Gran % (42.2 - 75.2 %) 93.5 H Lymphocytes % (20.5 - 51.1 %) 2.1 L Monocytes % (1.7 - 9.3 %) 3.9 Eosinophils % (0 - 5 %) 0.4 Basophils % (0.0 - 2.0 %) 0.1 Absolute Granulocytes (1.4 - 6.5 /CUMM) 9.3 H Absolute Lymphocytes (1.2 - 3.4 /CUMM) 0.2 L Absolute Monocytes (0.10 - 0.60 /CUMM) 0.4 Absolute Eosinophils (0.0 - 0.7 /CUMM) 0 Absolute Basophils (0.0 - 0.2 /CUMM) 0 PUBS MCHC (33.0 - 37.0 G/DL) 32.8 L Imaging/Other Studies: CXR: Blunting of the left costophrenic angle, suggestive of a small to moderate left-sided pleural effusion. Stable cardiomegaly, without overt pulmonary edema. Left basilar opacification is nonspecific and could reflect atelectasis although superimposed infection cannot be excluded in the appropriate clinical setting.
--- NOTE | 2016-03-10 13:23 | PN- Cardiology ---
Subjective Subjective: Slow clinical improvement. Respiratory status improving. Objective Vital Signs and I&Os Vital Signs Date Time Temp Pulse Resp B/P Pulse O2 O2 Flow FiO2 Ox Delivery Rate 03/10 1007 97 138/60 03/10 0800 97.8 97 20 138/60 90 Room Air 03/10 0000 Room Air 03/09 2300 97.7 97 24 132/62 91 Room Air 03/09 1530 98.0 87 20 132/62 92 Room Air 03/09 1351 Room Air Room Air Intake & Output 03/10 1600 03/10 0800 03/10 0000 03/09 1600 03/09 0803/09 0000 Intake Total 150 400 340 138 Output Total 1000 800 500 500 625 Balance -850 -400 -160 -500 -487 Intake, IV 0 0 18 Intake, Oral 150 400 340 120 Number 0 0 Bowel Movements Output, Urine 1000 800 500 500 625 Patient 156 lb 157 lb Weight Physical Exam: General: The patient is in no acute distress; VSS HEENT: Normal Neck: Supple with no JVD, no masses, and no thyromegaly Lungs: Bilateral rhonchi / crackles Heart: Irreg irreg, S1, S2, 2/6 systolic murmur. Abdomen: Soft, nontender, no masses. No hepatomegaly. No splenomegaly Extremities: No clubbing or cyanosis. Skin: Normal Neuro: Cranial nerves intact. Nonfocal Current Medications: Current Medications Sig/Aaliyah Start time Last Medication Dose Route Stop Time Status Admin Acetaminophen 650 MG .STK-MED ONE 03/10 0104 DC PO 03/10 0105 Acetaminophen 650 MG Q6PRN PRN 03/09 1715 AC 03/10 PO 1254 Artificial Tears 1 GTT TID PRN 03/08 1000 AC OPH Atorvastatin Calcium 20 MG 1700 03/08 1700 AC 03/09 PO 1641 Carvedilol 25 MG BID 03/07 2330 AC 03/10 PO 1007 Clobetasol Propionate 1 SEB BID PRN 03/08 1000 AC TOP Epoetin Edy 10,000 UNIT QMON 03/08 1130 AC 03/08 SC 1224 Epoetin Edy 2,000 UNIT QMON 03/08 1130 AC 03/08 SC 1225 Epoetin Edy 3,000 UNIT QMON 03/08 1130 AC 03/08 SC 1225 Ergocalciferol 50,000 IU QSUN 03/14 0700 AC PO Ferric Sodium 250 MG 1100 03/09 1100 03/10 Gluconate Complex IV 03/12 1259 1253 Sodium Chloride 250 ML Furosemide 80 MG 7:30 AM, & 4:30 PM 03/08 1630 03/10 IV 0801 Nystatin 1 SEB BID 03/08 1313 03/10 TOP 1007 Senna 374 MG AT BEDTIME 03/08 2200 AC 03/09 PO 214 Temazepam 15 MG AT BEDTIME 03/07 224 AC 03/09 PO 214 Trazodone HCl 50 MG .STK-MED ONE 03/09 1815 DC PO 03/09 1816 Trazodone HCl 25 MG Q4H PRN 03/07 2245 03/10 PO 0400 Warfarin Sodium 5 MG COUMADIN 1700 ONE 03/09 1700 DC 03/09 PO 03/09 1701 1641 Results Last 48 Hrs of Labs/Mics: Laboratory Tests 03/10/16 0610: Calcium 9.5, Phosphorus 5.7 H, Magnesium 2.0 03/10/16 0610: Anion Gap 11, Estimated GFR 17 L, BUN/Creatinine Ratio 17.7, PT 22.3 H, INR 2.14 H, CBC w Diff NO MAN DIFF REQ, RBC 3.04 L, MCV 89.6, MCH 29.8, RDW 17.4 H, MPV 9.5, Gran % 70.9, Lymphocytes % 12.5 L, Monocytes % 9.4 H, Eosinophils % 6.5 H, Basophils % 0.7, Absolute Granulocytes 3.3, Absolute Lymphocytes 0.6 L, Absolute Monocytes 0.4, Absolute Eosinophils 0.3, Absolute Basophils 0, PUBS MCHC 33.3 03/09/16 0810: Anion Gap 12, Estimated GFR 17 L, BUN/Creatinine Ratio 17.4 03/09/16 0810: Anion Gap 12, Estimated GFR 17 L, BUN/Creatinine Ratio 17.0, TIBC 281, Ferritin 16.4, PT 22.5 H, INR 2.16 H 03/08/16 1555: Ur Random Creatinine 63.2, U Random Total Protein 73.8 H, Protein/Creatinin Ratio 1.1 H Assessment/Plan Assessment/Plan Assessment: 1. Chronic atrial fibrillation, anticoagulated on warfarin. 2. Moderate pulmonary hypertension with moderate to severe tricuspid regurgitation 3. Mild aortic stenosis 4. Acute exacerbation of HFpEF, improving Recommendations: - Continue IV lasix - COntinue to monitor I/Os and weights - Followup labs in AM - FOllowup INR pending - OOB as tolerated. Continue telemetry? Yes
--- NOTE | 2016-03-10 14:43 | ECHOCARDIOGRAM REPORT ---
TORRIE STANTON Age: 86 : 1930 Gender: F Exam Date: 03/09/2016 19:24 Exam Location: [address] Ht (in): 60 Wt (lb): 160 BSA: 1.78 BP: 120 / 50 Ordering Physician: MORIAH BRAGG MD Referring Physician: Phan Brink MD Technologist: Nadya Chavarria [facility] Room Number: 172 Indications: HEART FAILURE Rhythm: Atrial fibrillation Technical Quality: Fair FINDINGS Left Ventricle Normal size left ventricle. Mild concentric left ventricular hypertrophy. Normal left ventricular ejection fraction visually estimated at >60%. No obvious regional wall motion abnormalities. Right Ventricle Mild right ventricular dilatation. Normal right ventricular global systolic function. Normal right ventricular global systolic function. Right Atrium Moderate right atrial dilatation. Left Atrium Mild left atrial dilatation. Mitral Valve Severe thickening/calcification of the posterior mitral valve leaflet. Mild mitral regurgitation. Aortic Valve Diffuse thickening of the aortic valve cusps with reduced excursion. Mild aortic stenosis. Mild aortic regurgitation. Tricuspid Valve Tricuspid valve not well visualized, grossly normal. Moderate to severe tricuspid regurgitation. Right ventricular systolic pressure estimated to be elevated at 54 mmHg. Pulmonic Valve Pulmonic valve not well visualized, grossly normal. Trace pulmonic regurgitation. Pericardium No pericardial effusion. Great Vessels Normal size aortic root. CONCLUSIONS Normal size left ventricle. Mild concentric left ventricular hypertrophy. Normal left ventricular ejection fraction visually estimated at > 60%. Mild right ventricular dilatation. Moderate right atrial dilatation. Mild left atrial dilatation. Severe thickening/calcification of the posterior mitral valve leaflet. Mild mitral regurgitation. Diffuse thickening of the aortic valve cusps with reduced excursion. Mild aortic stenosis. Mild aortic regurgitation. Moderate to severe tricuspid regurgitation. Right ventricular systolic pressure estimated to be elevated at 54 mmHg. Trace pulmonic regurgitation. Phan Brink M.D. (Electronically Signed) Final Date: 10 March 2016 14:43 MEASUREMENTS (Male / Female) Normal Values 2D ECHO LV Diastolic Diameter PLAX 4.0 cm 4.2 - 5.9 / 3.9 - 5.3 cm LV Systolic Diameter PLAX 1.9 cm 2.1 - 4.0 cm LV Fractional Shortening PLAX 52.5 % 25 - 46 % LV Ejection Fraction 2D Teich 84.0 % IVS Diastolic Thickness 1.4 cm LVPW Diastolic Thickness 1.4 cm LV Relative Wall Thickness 0.7 RV Internal Dim ED PLAX 3.9 cm 1.9 - 3.8 cm LVOT Diameter 1.8 cm Aortic Root Diameter 2.4 cm LA Systolic Diameter LX 5.1 cm 3.0 - 4.0 / 2.7 - 3.8 cm LA Volume 66.0 cm 18 - 58 / 22 - 52 cm Ascending Aorta Diameter 3.2 cm DOPPLER AV Peak Velocity 279.0 cm/s AV Peak Gradient 31.1 mmHg AV Mean Velocity 194.0 cm/s AV Mean Gradient 17.0 mmHg AV Velocity Time Integral 56.9 cm LVOT Peak Velocity 186.0 cm/s LVOT Peak Gradient 13.8 mmHg LVOT Mean Velocity 114.0 cm/s LVOT Mean Gradient 6.0 mmHg LVOT Velocity Time Integral 39.3 cm LVOT Stroke Volume 100.0 cm AV Area Cont Eq vti 1.8 cm AV Area Cont Eq pk 1.7 cm MV Peak Velocity 150.0 cm/s MV Peak Gradient 9.0 mmHg MV Mean Velocity 74.8 cm/s MV Mean Gradient 3.0 mmHg Mitral E Point Velocity 136.0 cm/s MV PHT Velocity 154.0 cm/s MV Deceleration [place] 955.0 cm/s MV Pressure Half Time 48.4 ms MV Area PHT 4.5 cm MV Deceleration Time 198.0 ms TR Peak Velocity 350.0 cm/s TR Peak Gradient 49.0 mmHg Right Atrial Pressure 5.0 mmHg Pulmonary Artery Systolic Pressu 54.0 mmHg Right Ventricular Systolic Press 54.0 mmHg PV Peak Velocity 97.1 cm/s PV Peak Gradient 3.8 mmHg PV Mean Velocity 63.2 cm/s PV Mean Gradient 2.0 mmHg PV Velocity Time Integral 17.5 cm LV E' Lateral Velocity 13.1 cm/s Mitral E to LV E' Lateral Ratio 10.4 LV E' Septal Velocity 9.9 cm/s Mitral E to LV E' Septal Ratio 13.8
[2016-03-10 15:30] VITALS: BP 138/62
[2016-03-10 23:00] VITALS: BP 148/76
[2016-03-11 08:25] LABS: PT 27.9 SEC (9.4-12.5)
[2016-03-11 08:31] VITALS: BP 138/80
--- NOTE | 2016-03-11 08:34 | PN- Housestaff ---
Subjective Follow-up For: -Acute exacerbation of HFpEF -CKD stage 4 Tele-Events Since Last Visit: Atrial fibrillation, rate 92-104, no events Subjective: Patient seen and examined. Feels better compared to yesterday. Dose of breath has improved. Upper and lower extremity edema has improved. Denies headache, nausea, vomiting, dizziness, lightheadedness, chest pain, palpitation, abdominal pain, urinary symptoms. Vital signs stable. No overnight events reported. Review of Systems Constitutional: Denies: see HPI. Objective Last 24 Hrs of Vital Signs/I&O Vital Signs Date Time Temp Pulse Resp B/P Pulse O2 O2 Flow FiO2 Ox Delivery Rate 03/11 0845 138/68 03/11 0831 98.0 89 18 138/80 91 Room Air 03/11 0000 Room Air 03/10 2300 98.1 96 18 148/76 92 Room Air 03/10 2129 96 148/78 03/10 1530 97.6 92 20 138/62 92 Room Air 03/10 1007 97 138/60 Intake & Output 03/11 1600 03/11 0800 03/11 0000 Intake Total 400 Output Total 600 Balance -200 Intake, Oral 400 Output, Urine 600 Patient 152 lb Weight Physical Exam General Appearance: Alert, Oriented X3, Cooperative, No Acute Distress Skin: No Rashes, No Breakdown, No Significant Lesion HEENT: Atraumatic, PERRLA, EOMI, Mucous Membr. moist/pink Neck: Supple, No JVD, No thryomegaly, +2 Carotid Pulse wo Bruit, No LAD Lymphatic: Axillary nl, Cervical nl Cardiovascular: irregular, systolic murmur Lungs: bilateral rhonchi Abdomen: Normal Bowel Sounds, Soft, No Tenderness, No Hepatospenomegaly, No Masses Neurological: Normal Speech, Strength at 5/5 X4 Ext, Normal Tone, Sensation Intact, Cranial Nerves 3-12 NL, Reflexes 2+ Extremities: No Clubbing, No Cyanosis, Normal Pulses, bilateral lower extremity edema noted., upper extremity edema improved Vascular: Normal Pulses, Pulses Symmetrical Current Medications: Current Medications Sig/Aaliyah Start time Last Medication Dose Route Stop Time Status Admin Acetaminophen 650 MG Q6PRN PRN 03/09 1715 AC 03/10 PO 1254 Artificial Tears 1 GTT TID PRN 03/08 1000 AC OPH Atorvastatin Calcium 20 MG 1700 03/08 1700 AC 03/10 PO 1652 Carvedilol 25 MG BID 03/07 2330 AC 03/11 PO 0845 Clobetasol Propionate 1 SEB BID PRN 03/08 1000 AC TOP Docusate Sodium 100 MG BID 03/11 1000 AC 03/11 PO 0815 Epoetin Edy 10,000 UNIT QMON 03/08 1130 AC 03/08 SC 1224 Epoetin Edy 2,000 UNIT QMON 03/08 1130 AC 03/08 SC 1225 Epoetin Edy 3,000 UNIT QMON 03/08 1130 AC 03/08 SC 1225 Ergocalciferol 50,000 IU QSUN 03/14 0700 AC PO Ferric Sodium 250 MG 1100 03/09 1100 AC 03/10 Gluconate Complex IV 03/12 1259 1253 Sodium Chloride 250 ML Furosemide 80 MG 7:30 AM, & 4:30 PM 03/08 1630 AC 03/11 IV 0646 Nystatin 1 SEB BID 03/08 1313 AC 03/11 TOP 0845 Senna 374 MG AT BEDTIME 03/08 2200 AC 03/10 PO 2128 Temazepam 15 MG AT BEDTIME 03/07 2245 AC 03/10 PO 2129 Trazodone HCl 50 MG .STK-MED ONE 03/10 2115 DC PO 03/10 211 Trazodone HCl 25 MG Q4H PRN 03/07 2245 AC 03/10 PO 0400 Warfarin Sodium 7 MG COUMADIN 1700 ONE 03/10 1700 DC 03/10 PO 03/10 1701 1652 Last 24 Hrs of Lab/Saad Results Last 24 Hrs of Labs/Mics: Laboratory Tests 03/11/16 0610: PT 27.9 H, INR 2.68 H Assessment/Plan Assessment: This is a 89-year-old lady with past medical history significant for chronic atrial fibrillation, HFpEF, Hypertension who presented to the hospital with worsening edema in UEs and LEs along with dyspnea. Problem list: 1-Acute Hfpef exacerbation 2-Chronic A.fib on Warfarin, Supratherapeutic INR on admission 3-CKD stage IVstable Plan: * Telemtry monitor * Is&Os:-1240 ml 12/29/16, daily Wts 156 12/29/16 * Echo 03/09/2016:Normal size left ventricle. Mild concentric left ventricular hypertrophy. Normal left ventricular ejection fraction visually estimated at > 60%. Mild right ventricular dilatation. Moderate right atrial dilatation. Mild left atrial dilatation. Severe thickening/calcification of the posterior mitral valve leaflet. Mild mitral regurgitation. Diffuse thickening of the aortic valve cusps with reduced excursion. Mild aortic stenosis. Mild aortic regurgitation. Moderate to severe tricuspid regurgitation. Right ventricular systolic pressure estimated to be elevated at 54 mmHg. Trace pulmonic regurgitation. * Repeat chest x-ray 03/11/16 shows No evidence of pulmonary edema(limited exam) * C/W Lasix 80MG IV BID; consider change to by mouth * Daily BEP * Nephro consult appreciated:Fluid restriction 800ML daily, NaCl tabs discontinued, was started on a fe gluconate 50 mg IV daily for 4 doses today today #2 . Test all stools for Hemoccult. Continue with EPO sc q wk. * INR 2.68 today will administer 5mg Warfarin; INR tomorrow morning * C/W Carvediolol * DNI/DNR * DVT PPX: On Warfarin with therapeutic INR Problem List: 1. CHF (congestive heart failure) 2. CHF exacerbation 3. Chronic renal insufficiency Pain Ratin Pain Location: NA Pain Goal: Remain pain free Pain Plan: Pain free Tomorrow's Labs & Rationales: BEP to monitor creatinine levels INR, patient is on Warfarin
--- NOTE | 2016-03-11 08:56 | PN- Nephrology ---
Assessment/Plan Assessment: 1. CKD: severe, stage 4; w/o renal replacement need 2. Hyponatremia: mild w volume overload; improved w fluid restriction 3. Volume overload: due to CHF & CKD; improved 4. Anemia: due to CKD & Fe deficiency; on EPO & IV Fe Suggestion: 1. complete IV Fe gluconate 2. EPO sc q wk - continue as outpt 3. check stool OB 4. would change Lasix IV --> po Subjective Subjective: No SOB Leg swelling better I/O negative again yesterday Objective Vital Signs and I&Os Vital Signs Date Time Temp Pulse Resp B/P Pulse O2 O2 Flow FiO2 Ox Delivery Rate 03/11 0845 138/68 03/11 0831 98.0 89 18 138/80 91 Room Air 03/11 0000 Room Air 03/10 2300 98.1 96 18 148/76 92 Room Air 03/10 2129 96 148/78 03/10 1530 97.6 92 20 138/62 92 Room Air 03/10 1007 97 138/60 Intake & Output 03/11 1600 03/11 0400 03/10 1600 03/10 0400 03/09 1600 03/09 0400 Intake Total 400 510 400 340 138 Output Total 600 5265 529 9067 625 Balance -200 -1040 -400 -660 -487 Intake, IV 0 0 18 Intake, Oral 400 510 400 340 120 Number 0 0 Bowel Movements Output, Urine 600 8038 203 6685 625 Patient 152 lb 156 lb 157 lb Weight Physical Exam General Appearance: well developed/nourished, no apparent distress Head: atraumatic, normal appearance Neck: normal inspection Respiratory: normal breath sounds, no respiratory distress, quiet respiration, lungs clear Cardiovascular: irregularly irregular Abdomen: soft, non-tender, no organomegaly Extremities: pedal edema (much improved) Current Medications: Current Medications Sig/Aaliyah Start time Last Medication Dose Route Stop Time Status Admin Acetaminophen 650 MG Q6PRN PRN 03/09 1715 AC 03/10 PO 1254 Artificial Tears 1 GTT TID PRN 03/08 1000 AC OPH Atorvastatin Calcium 20 MG 1700 03/08 1700 AC 03/10 PO 1652 Carvedilol 25 MG BID 03/07 2330 AC 03/11 PO 0845 Clobetasol Propionate 1 SEB BID PRN 03/08 1000 AC TOP Docusate Sodium 100 MG BID 03/11 1000 AC 03/11 PO 0815 Epoetin Edy 10,000 UNIT QMON 03/08 1130 03/08 [place] 1224 Epoetin Edy 2,000 UNIT QMON 03/08 1130 03/08 [place] 1225 Epoetin Edy 3,000 UNIT QMON 03/08 1130 03/08 [place] 1225 Ergocalciferol 50,000 IU QSUN 03/14 0700 AC PO Ferric Sodium 250 MG 1100 03/09 1100 AC 03/10 Gluconate Complex IV 03/12 1259 1253 Sodium Chloride 250 ML Furosemide 80 MG 7:30 AM, & 4:30 PM 03/08 1630 03/11 IV 0646 Nystatin 1 SEB BID 03/08 1313 03/11 TOP 0845 Senna 374 MG AT BEDTIME 03/08 2200 03/10 PO 212 Temazepam 15 MG AT BEDTIME 03/07 2245 03/10 PO 2129 Trazodone HCl 50 MG .STK-MED ONE 03/10 2115 DC PO 03/10 211 Trazodone HCl 25 MG Q4H PRN 03/07 2245 03/10 PO 0400 Warfarin Sodium 7 MG COUMADIN 1700 ONE 03/10 1700 DC 03/10 PO 03/10 1701 1652 Results Pertinent Lab Results: Laboratory Tests 03/11 03/10 03/10 0610 0610 0610 Chemistry Sodium (137 - 145 mmol/L) 135 L Potassium (3.5 - 5.1 mmol/L) 4.2 Chloride (98 - 107 mmol/L) 100 Carbon Dioxide (22 - 30 mmol/L) 24 Anion Gap (5 - 16) 11 BUN (7 - 17 mg/dL) 46 H Creatinine (0.5 - 1.0 mg/dL) 2.6 H Estimated GFR (>60 ml/min) 17 L BUN/Creatinine Ratio (7 - 25 %) 17.7 Calcium (8.4 - 10.2 mg/dL) 9.5 Phosphorus (2.5 - 4.5 mg/dL) 5.7 H Magnesium (1.6 - 2.3 mg/dL) 2.0 Coagulation PT (9.4 - 12.5 SEC) 27.9 H 22.3 H INR (0.90 - 1.19) 2.68 H 2.14 H Hematology CBC w Diff NO MAN DIFF REQ WBC (4.8 - 10.8 /CUMM) 4.6 L RBC (4.20 - 5.40 /CUMM) 3.04 L Hgb (12.0 - 16.0 G/DL) 9.1 L Hct (37 - 47 %) 27.3 L MCV (81.0 - 99.0 FL) 89.6 MCH (27.0 - 31.0 PG) 29.8 RDW (11.5 - 14.5 %) 17.4 H Plt Count (130 - 400 /CUMM) 178 MPV (7.4 - 10.4 FL) 9.5 Gran % (42.2 - 75.2 %) 70.9 Lymphocytes % (20.5 - 51.1 %) 12.5 L Monocytes % (1.7 - 9.3 %) 9.4 H Eosinophils % (0 - 5 %) 6.5 H Basophils % (0.0 - 2.0 %) 0.7 Absolute Granulocytes (1.4 - 6.5 /CUMM) 3.3 Absolute Lymphocytes (1.2 - 3.4 /CUMM) 0.6 L Absolute Monocytes (0.10 - 0.60 /CUMM) 0.4 Absolute Eosinophils (0.0 - 0.7 /CUMM) 0.3 Absolute Basophils (0.0 - 0.2 /CUMM) 0 PUBS MCHC (33.0 - 37.0 G/DL) 33.3 03/09 03/09 03/08 03/08 0810 0810 1555 1210 Chemistry Sodium (137 - 145 mmol/L) 133 L 133 L Potassium (3.5 - 5.1 mmol/L) 4.3 4.3 Chloride (98 - 107 mmol/L) 98 98 Carbon Dioxide (22 - 30 mmol/L) 24 23 Anion Gap (5 - 16) 12 12 BUN (7 - 17 mg/dL) 47 H 46 H Creatinine (0.5 - 1.0 mg/dL) 2.7 H 2.7 H Estimated GFR (>60 ml/min) 17 L 17 L BUN/Creatinine Ratio (7 - 25 %) 17.4 17.0 TIBC (265 - 497 ug/dL) 281 Ferritin (11.1 - 264 ng/mL) 16.4 Coagulation PT (9.4 - 12.5 SEC) 22.5 H 27.4 H INR (0.90 - 1.19) 2.16 H 2.63 H Urines Ur Random Creatinine (mg/dL) 63.2 U Random Total Protein (0 - 12 mg/dL) 73.8 H Protein/Creatinin Ratio (< 0.2) 1.1 H 03/08 1132 Urines Ur Random Creatinine Cancelled U Random Total Protein Cancelled Imaging/Other Studies: Echo: Normal size left ventricle. Mild concentric left ventricular hypertrophy. Normal left ventricular ejection fraction visually estimated at > 60%. Mild right ventricular dilatation. Moderate right atrial dilatation. Mild left atrial dilatation. Severe thickening/calcification of the posterior mitral valve leaflet. Mild mitral regurgitation. Diffuse thickening of the aortic valve cusps with reduced excursion. Mild aortic stenosis. Mild aortic regurgitation. Moderate to severe tricuspid regurgitation. Right ventricular systolic pressure estimated to be elevated at 54 mmHg. Trace pulmonic regurgitation.
--- NOTE | 2016-03-11 10:17 | RADIOLOGY REPORT ---
EXAMINATION: XR PORTABLE CHEST CLINICAL INFORMATION: Bilateral lower extremity edema with shortness of breath. Presumptive diagnosis of CHF exacerbation. COMPARISON: Chest x-ray dated 03/11/2016 and 12/19/2015. TECHNIQUE: Portable view of the chest was obtained. FINDINGS: The cardiomediastinal silhouette is markedly enlarged, similar to the prior exams. Evaluation of the left lung base is limited due to overlapping external mechanical device. There continues to be some opacity in the left lung base, likely similar to the previous study. Remainder of the lungs is clear. No evidence of pulmonary edema or pneumothorax. No right-sided pleural effusion. Bony structures grossly unremarkable. IMPRESSION: 1. Significantly limited exam due to overlap of extrinsic mechanical device over the left lung base. There is likely no significant change in left basilar opacity, which may be related to an effusion and associated atelectasis or pneumonia. 2. No evidence of pulmonary edema. 3. Marked cardiomegaly.
[2016-03-11 16:25] VITALS: BP 152/64
--- NOTE | 2016-03-11 18:40 | PN- Cardiology ---
Subjective Subjective: Shortness of breath is improving. Lower extremity edema is improving. No chest pain. No palpitations. No lightheadedness or dizziness. No nausea or vomiting. Objective Vital Signs and I&Os Vital Signs Date Time Temp Pulse Resp B/P Pulse O2 O2 Flow FiO2 Ox Delivery Rate 03/11 1625 97.9 88 18 152/64 91 Room Air 03/11 1600 92 Room Air 03/11 0845 138/68 03/11 0831 98.0 89 18 138/80 91 Room Air 03/11 0000 Room Air 03/10 2300 98.1 96 18 148/76 92 Room Air 03/10 2129 96 148/78 Intake & Output 03/11 1600 03/11 0800 03/11 0000 03/10 1600 03/10 0800 03/10 0000 Intake Total 550 240 400 360 150 400 Output Total 650 600 015 170 9831 800 Balance -100 -360 -200 -190 -850 -400 Intake, IV 250 0 0 Intake, Oral 300 240 400 360 150 400 Number 1 0 0 Bowel Movements Output, Urine 650 600 237 913 2883 800 Patient 152 lb 152 lb 156 lb Weight Physical Exam: Gen: The patient is in no acute distress HEENT: Normal nose, ears, and oropharynx. Pupils equal bilaterally. Conjunctiva normal. Neck: Supple with no JVD, no masses, and no thyromegaly Lungs: Few rales with normal respiratory effort Heart: Irreg irreg, S1, S2, 1/6 systolic murmur. 2+ peripheral edema, 2+ pulses in the lower extremities bilaterally Abdomen: Soft, nontender, no masses. No hepatomegaly. No splenomegaly Extremities: No clubbing or cyanosis. Normal muscle strength in the upper and lower extremities Skin: Normal skin turgor with no skin ulcers or lesions noted. Neuro: Cranial nerves intact. Sensation intact Current Medications: Current Medications Sig/Aaliyah Start time Last Medication Dose Route Stop Time Status Admin Acetaminophen 650 MG Q6PRN PRN 03/09 1715 AC 03/10 PO 1254 Artificial Tears 1 GTT TID PRN 03/08 1000 AC OPH Atorvastatin Calcium 20 MG 1700 03/08 1700 AC 03/11 PO 1654 Carvedilol 25 MG BID 03/07 2330 AC 03/11 PO 0845 Clobetasol Propionate 1 SEB BID PRN 03/08 1000 AC TOP Docusate Sodium 100 MG BID 03/11 1000 AC 03/11 PO 0815 Epoetin Edy 10,000 UNIT QMON 03/08 1130 03/08 [place] 1224 Epoetin Edy 2,000 UNIT QMON 03/08 1130 03/08 SC 1225 Epoetin Edy 3,000 UNIT QMON 03/08 1130 03/08 SC 1225 Ergocalciferol 50,000 IU QSUN 03/14 0700 AC PO Ferric Sodium 250 MG 1100 03/09 1100 03/11 Gluconate Complex IV 03/12 1259 1415 Sodium Chloride 250 ML Furosemide 80 MG 7:30 AM, & 4:30 PM 03/11 1630 03/11 PO 1653 Furosemide 80 MG 7:30 AM, & 4:30 PM 03/08 1630 VT 03/11 IV 0646 Guaifenesin 600 MG ONCE ONE 03/11 1815 DC PO 03/11 1816 Nystatin 1 SBE BID 03/08 1313 03/11 TOP 0845 Patient Medication 1 ED .STK-MED ONE 03/11 1348 DC Teaching ED 03/11 1349 Senna 374 MG AT BEDTIME 03/08 2200 03/10 PO 2128 Temazepam 15 MG AT BEDTIME 03/07 2245 03/10 PO 2129 Trazodone HCl 50 MG .STK-MED ONE 03/10 2116 DC PO 03/10 2117 Trazodone HCl 25 MG Q4H PRN 03/07 2245 03/10 PO 0400 Warfarin Sodium 5 MG COUMADIN 1700 ONE 03/11 1700 VT 03/11 PO 03/11 1701 1653 Results Last 48 Hrs of Labs/Mics: Laboratory Tests 03/11/16 0610: PT 27.9 H, INR 2.68 H 03/10/16 0610: Calcium 9.5, Phosphorus 5.7 H, Magnesium 2.0 03/10/16 0610: Anion Gap 11, Estimated GFR 17 L, BUN/Creatinine Ratio 17.7, PT 22.3 H, INR 2.14 H, CBC w Diff NO MAN DIFF REQ, RBC 3.04 L, MCV 89.6, MCH 29.8, RDW 17.4 H, MPV 9.5, Gran % 70.9, Lymphocytes % 12.5 L, Monocytes % 9.4 H, Eosinophils % 6.5 H, Basophils % 0.7, Absolute Granulocytes 3.3, Absolute Lymphocytes 0.6 L, Absolute Monocytes 0.4, Absolute Eosinophils 0.3, Absolute Basophils 0, PUBS MCHC 33.3 Recent Imaging Studies: 1. Significantly limited exam due to overlap of extrinsic mechanical device over the left lung base. There is likely no significant change in left basilar opacity, which may be related to an effusion and associated atelectasis or pneumonia. 2. No evidence of pulmonary edema. 3. Marked cardiomegaly. Assessment/Plan Assessment/Plan Assessment: 1. Chronic atrial fibrillation, anticoagulated on warfarin. 2. Moderate pulmonary hypertension with moderate to severe tricuspid regurgitation 3. Mild aortic stenosis 4. Acute exacerbation of HFpEF, improving Plan: * Change Lasix to 80 mg po BID * Follow input and output with daily weights * Check basic metabolic profile daily * Continue carvedilol for rate control * Continue warfarin for INR 2-3 Continue telemetry? Yes
[2016-03-12 00:09] VITALS: BP 142/60
--- NOTE | 2016-03-12 07:54 | PN- Housestaff ---
Subjective Follow-up For: -Acute exacerbation of HFpEF -CKD stage 4 Tele-Events Since Last Visit: Atrial fibrillation, rate 92 -122, PVCs Subjective: Patient seen and examined earlier this morning. She is having congestion and scratchy throat. Reports shortness of breath. Denies headache, nausea, vomiting, dizziness, lightheadedness, palpitation, chest pain, abdominal pain, urinary symptoms. Tachycardic to 114, blood pressure 140 systolic, 80s diastolic, afebrile, adequate oxygen saturation on room air. Review of Systems Constitutional: Denies: see HPI. Objective Last 24 Hrs of Vital Signs/I&O Vital Signs Date Time Temp Pulse Resp B/P Pulse O2 O2 Flow FiO2 Ox Delivery Rate 03/12 1010 Room Air 03/12 0943 114 144/82 03/12 0805 97.6 114 20 144/82 91 Room Air 03/12 0009 98.0 84 18 142/60 92 Room Air 03/12 0000 92 Room Air 03/11 2158 102 148/88 03/11 1625 97.9 88 18 152/64 91 Room Air 03/11 1600 92 Room Air Intake & Output 03/12 1600 03/12 0800 03/12 0000 Intake Total 240 200 Output Total 550 1300 Balance -310 -1100 Intake, Oral 240 200 Number 1 0 Bowel Movements Output, Urine 550 1300 Patient 150 lb Weight Physical Exam General Appearance: Alert, Oriented X3, Cooperative, No Acute Distress Skin: No Rashes, No Breakdown, No Significant Lesion HEENT: Atraumatic, PERRLA, EOMI, Mucous Membr. moist/pink, pharynx erythematous, no exudates Neck: Supple, No JVD, No thryomegaly, +2 Carotid Pulse wo Bruit, No LAD Lymphatic: Axillary nl, Cervical nl Cardiovascular: irregular, systolic murmur Lungs: bilateral rhonchi Abdomen: Normal Bowel Sounds, Soft, No Tenderness, No Hepatospenomegaly, No Masses Neurological: Normal Speech, Strength at 5/5 X4 Ext, Normal Tone, Sensation Intact, Cranial Nerves 3-12 NL, Reflexes 2+ Extremities: No Clubbing, No Cyanosis, Normal Pulses, bilateral lower extremity edema, improved compared to the last physical exam Vascular: Normal Pulses, Pulses Symmetrical Current Medications: Current Medications Sig/Aaliyah Start time Last Medication Dose Route Stop Time Status Admin Acetaminophen 650 MG Q6PRN PRN 03/09 1715 AC 03/10 PO 1254 Artificial Tears 1 GTT TID PRN 03/08 1000 AC OPH Atorvastatin Calcium 20 MG 1700 03/08 1700 AC 03/11 PO 1654 Carvedilol 25 MG BID 03/07 2330 03/12 PO 0943 Clobetasol Propionate 1 SEB BID PRN 03/08 1000 AC TOP Docusate Sodium 100 MG BID 03/11 1000 AC 03/11 PO 0815 Epoetin Edy 10,000 UNIT QMON 03/08 1130 AC 03/08 SC 1224 Epoetin Edy 2,000 UNIT QMON 03/08 1130 AC 03/08 SC 1225 Epoetin Edy 3,000 UNIT QMON 03/08 1130 03/08 SC 1225 Ergocalciferol 50,000 IU QSUN 03/14 0700 PO Ferric Sodium 250 MG 1100 03/09 1100 RI 03/11 Gluconate Complex IV 03/12 1259 1415 Sodium Chloride 250 ML Furosemide 80 MG 7:30 AM, & 4:30 PM 03/11 1630 03/12 PO 0941 Furosemide 80 MG 7:30 AM, & 4:30 PM 03/08 1630 RI 03/11 IV 0646 Guaifenesin 600 MG Q12P PRN 03/12 0445 03/12 PO 0556 Guaifenesin 600 MG ONCE ONE 03/11 1815 DC 03/11 PO 03/11 1816 1944 Nystatin 1 SEB BID 03/08 1313 RI 03/12 [facility] 0943 Patient Medication 1 ED .STK-MED ONE 03/11 1348 RI Teaching ED 03/11 1349 Senna 374 MG AT BEDTIME 03/08 2200 03/10 PO 2128 Temazepam 15 MG AT BEDTIME 03/07 2245 03/11 PO 2159 Trazodone HCl 25 MG Q4H PRN 03/07 2245 03/10 PO 0400 Warfarin Sodium 5 MG COUMADIN 1700 ONE 03/11 1700 DC 03/11 PO 03/11 1701 1653 Last 24 Hrs of Lab/Saad Results Last 24 Hrs of Labs/Mics: Laboratory Tests 03/12/16 0615: Anion Gap 15, Estimated GFR 17 L, BUN/Creatinine Ratio 18.1, Magnesium 1.9, PT 34.1 H, INR 3.29 H Assessment/Plan Assessment: This is a 89-year-old lady with past medical history significant for chronic atrial fibrillation, HFpEF, Hypertension who presented to the hospital with worsening edema in UEs and LEs along with dyspnea. Problem list: 1-Acute Hfpef exacerbation 2-Chronic A.fib on Warfarin, Supratherapeutic INR on admission 3-CKD stage IVstable Plan: * Telemtry monitor * Is&Os:-1560 ml 03/11/16, daily Wts 152 03/11/16 * Echo 03/09/2016:Normal size left ventricle. Mild concentric left ventricular hypertrophy. Normal left ventricular ejection fraction visually estimated at > 60%. Mild right ventricular dilatation. Moderate right atrial dilatation. Mild left atrial dilatation. Severe thickening/calcification of the posterior mitral valve leaflet. Mild mitral regurgitation. Diffuse thickening of the aortic valve cusps with reduced excursion. Mild aortic stenosis. Mild aortic regurgitation. Moderate to severe tricuspid regurgitation. Right ventricular systolic pressure estimated to be elevated at 54 mmHg. Trace pulmonic regurgitation. * Repeat chest x-ray 03/11/16 shows No evidence of pulmonary edema(limited exam) * IV lasix was changed to PO 80 mg twice a day yesterday * Daily BEP * Nephro consult appreciated:Fluid restriction 800ML daily, NaCl tabs discontinued, was started on a fe gluconate 50 mg IV daily for 4 doses completed the course . Test all stools for Hemoccult. Continue with EPO sc q wk. * INR 3.29 today; will hold warfarin today; INR tomorrow morning * C/W Carvediolol * DNI/DNR * DVT PPX: On Warfarin Problem List: 1. CHF exacerbation 2. Chronic renal insufficiency Pain Ratin Pain Location: NA Pain Goal: Remain pain free Pain Plan: NA Tomorrow's Labs & Rationales: BEP to monitor creatinine and electrolytes INR, patient is on warfarin.
[2016-03-12 08:05] VITALS: BP 144/82
[2016-03-12 08:42] LABS: PT 34.1 SEC (9.4-12.5)
--- NOTE | 2016-03-12 09:02 | Discharge Summary ---
See Addendum Visit Information Visit Dates Admission Date: 03/07/16 Discharge Date: 03/14/16 Hospital Course Course Attending Physician: MARIO CEDENO MD Primary Care Physician: MONICA CRANDALL,AURA Jones Consulting Request: Consulting Specialty: Nephrology Hospital Course: Mrs Hsu is an 86-year-old lady with a PMH of atrial fibrillation on Warfarin, HTN, HLD, COPD, iron deficiency anemia presented with complaints of one-week duration upper and lower extremity swelling, 10 pound weight gain and exertional shortness of breath. She was last admitted to [facility] in November 2015 for lower extremity edema, managed with IV Lasix, returned a few days later after suffering a fall and discharged to [facility] for rehabilitation. She was sent home 2 days before [place] and reported doing well overall until February 28 when she noted exertional shortness of breath and ambulating with walker and new onset bilateral upper extremity swelling/weeping along with bilateral lower extremity swelling. She contacted her data analysis assistant and was started on additional furosemide 40 mg daily along with her previous dose of 80 mg daily. In the setting of her anemia she also recently started weekly Procrit shots at the [facility] infusion center with noticeable improvement in her energy level. She reported decreased urine output but denied any fevers, chills, productive cough, headache, dizziness, palpitations, chest pain, new onset numbness in any of her extremities. Her last echocardiogram from 12/21/2015: LVEF 60%, mild LVH, severely dilated right atrium, RV systolic pressure 46.7 mmHg. Vital signs on admission: Date Time Temp Pulse Resp B/P Pulse O2 O2 Flow FiO2 Ox Delivery Rate 03/07 2243 98.4 101 20 126/72 92 Room Air 03/07 2241 92 Room Air 03/07 1923 100 127/68 94 Room Air 03/07 1908 96 Room Air 03/07 1812 106 110/66 03/07 1703 98.1 103 18 104/56 92 Room Air Pertinent physical exam at the time of admission: General Appearance Alert, Cooperative, No Acute Distress Skin Bilateral temporal hyperpigmentation HEENT PERRLA, EOMI, Mucous Membr. moist/pink Cardiovascular Irregularly irregular rhythm. Systolic murmur Lungs Inspiratory crackles present in the basilar regions bilaterally Abdomen Normal Bowel Sounds, Soft, No Tenderness Neurological Normal Speech, Normal Tone, Sensation Intact, Cranial Nerves 3-12 NL Extremities 3+ pitting edema BL upper and lower extremities Vascular Pulses Symmetrical, Distal aspect of both feet slightly cool to touch Lab data on admission: 03/07/16 1739: Anion Gap 13, Estimated GFR 17 L, BUN/Creatinine Ratio 16.3, Glucose 110 H, Calcium 9.5, Total Bilirubin 0.8, AST 17, ALT 24, Alkaline Phosphatase 112, Troponin I < 0.01, Swr-D-Osnooofhklw Pept 96937 H, Total Protein 5.4 L, Albumin 3.0 L, Globulin 2.4, Albumin/Globulin Ratio 1.3, CBC w Diff NO MAN DIFF REQ, RBC 3.34 L, MCV 90.2, MCH 29.6, RDW 17.3 H, MPV 8.9, Gran % 93.5 H, Lymphocytes % 2.1 L, Monocytes % 3.9, Eosinophils % 0.4, Basophils % 0.1, Absolute Granulocytes 9.3 H, Absolute Lymphocytes 0.2 L, Absolute Monocytes 0.4, Absolute Eosinophils 0, Absolute Basophils 0, PUBS MCHC 32.8 L Diagnostic Data CXR Results Blunting of the left costophrenic angle, suggestive of a small to moderate left- sided pleural effusion. Stable cardiomegaly, without overt pulmonary edema. Left basilar opacification is nonspecific and could reflect atelectasis although superimposed infection cannot be excluded in the appropriate clinical setting. The patient was admitted to telemetry monitored service. The following problems were addressed during the course of her hospital stay: #Acute Hfpef exacerbation: Patient's I's and O's, daily weights and vital signs were monitored closely. ACS was ruled out with serial troponins and EKGs. She was started on IV furosemide 80 mg twice a day which was later on changed to by mouth. Creatinine and electrolytes were monitored closely and remained stable. Repeat chest x-ray on 03/11/2016 showed no evidence of pulmonary edema. Patient's lower extremity edema and shortness of breath improved. Echocardiogram on 03/09/2016: Normal size left ventricle. Mild concentric left ventricular hypertrophy. Normal left ventricular ejection fraction visually estimated at > 60%. Mild right ventricular dilatation. Moderate right atrial dilatation. Mild left atrial dilatation. Severe thickening/calcification of the posterior mitral valve leaflet. Mild mitral regurgitation. Diffuse thickening of the aortic valve cusps with reduced excursion. Mild aortic stenosis. Mild aortic regurgitation. Moderate to severe tricuspid regurgitation. Right ventricular systolic pressure estimated to be elevated at 54 mmHg. Trace pulmonic regurgitation. #Shortness of breath, cough, congestion: 03/12/2016, patient developed congestion, scratchy throat, dry cough. She required oxygen supplementation with 2 L nasal cannula oxygen. Rapid strep and rapid flu were negative. Pulmonary was consulted; as there was no clinical evidence suggestive of acute bacterial pneumonia (leukocytosis or yellow-green sputum, fever) the patient was not started on antibiotics. Per pulmonary recommendations, Spiriva was added to patient's medication regimen. Patient was tapered off oxygen and had adequate saturation on room air. #CKD stage IV: Stable. Nephrology was consulted. The patient was placed on fluid restriction 800 mL daily, she was initially on NaCl tabs which was later on discontinued. She was started on fe gluconate 50 mg IV daily for 4 doses. All stools were tested for Hemoccult. She was continued on EPO sc q wk. She was maintained on Renal dialysis diet with 800 ml fluid restriction daily. #Chronic A.fib on Warfarin: Warfarin was initially held given elevated INR. Was restarted on second day of hospital stay. Patient's INR levels were checked every day and dose of warfarin was adjusted based on her INR values. The patient was maintained on carvedilol 25 mg by mouth twice a day for rate control. #Elevated direct bilirubin: Patient's INR remained supratherapeutic even though warfarin was held, LFT was checked on 03/13/2016, which showed: Total bilirubin 0.6, direct bilirubin 0.6, AST 18, ALT 30, alkaline phosphatase 100; direct bilirubin mildly elevated however total bilirubin is within normal limits, AST, ALT, alkaline phosphatase within normal limit, hepatitis B and C negative (12/20/2015). Patient is not jaundiced, no abdominal pain or other complaints. ? Isolated direct hyperbilirubinemia; mildly elevated. Total bilirubin normal. ?abd US. Outpatient follow-up PCP, repeat labs. Gastroenterology referral. #DVT prophylaxis: The patient on warfarin #CODE STATUS: DNI/DNR PT recommended STR for the patient. Allergies: Coded Allergies: Penicillins (EDEMA 09/18/15) cefdinir (TONGUE SWELLING 09/18/15) codeine (HYPERACTIVITY 09/18/15) erythromycin base (UPSET STOMACH 09/18/15) ibuprofen (UPSET STOMACH 09/18/15) Disposition Summary Disposition Principal Diagnosis: CHF exacerbation Additional Diagnosis: CKD stage IV -stable Atrial fibrillation on warfarin Discharge Disposition: SNF Discharge Instructions General Discharge Information Code Status: Do Not Resucitate/Intubat Patient's Diet: Renal dialysis diet with 800 ml fluid restriction daily Patient's Activity: As tolerated Follow-Up Instructions/Appts: -Please follow-up with your PCP within a week of discharge. -Please follow up with Drawbench Operator, Dr. Cedeno within a week of of discharge. -Please follow up with vein access technician, Dr. Day within a week of discharge. -Please check INR daily and dose warfarin based on INR levels. Goal is INR 2-3. INR level on 03/14/16 is 3.17. Warfarin on hold today. Please check INR tomorrow morning and dose warfarin accrodingly. -Follow-up with CHF and Coumadin clinic. -Make an appointment to see hide tanner, Dr. Poon, within a week of discharge (referral provided). Medications at Discharge Discharge Medications: Stop taking the following medications: Furosemide (Lasix) 80 MG TABLET ORAL DAILY Qty = 30 Furosemide (Furosemide) 40 MG TABLET ORAL DAILY Sodium Chloride (Sodium Chloride) 1 GRAM TABLET ORAL TWICE DAILY Warfarin Sodium (Coumadin) 3 MG TABLET ORAL DAILY Warfarin Sodium (Coumadin) 1 MG TABLET ORAL DAILY Continue taking these medications: Atorvastatin Calcium (Atorvastatin Calcium) 20 MG TABLET 1 Tablet ORAL DAILY Qty = 90 Solifenacin Succinate (Vesicare) 5 MG TABLET 1 Tablet ORAL DAILY Qty = 90 Ergocalciferol (Vitamin D2) (Vitamin D2) 50,000 UNIT CAPSULE 1 Capsule ORAL EVERY TUESDAY Nisoldipine (Nisoldipine) 20 MG TAB.ER.24H 1 Tablet ORAL Every Morning Qty = 90 Carvedilol (Carvedilol) 25 MG TABLET 1 Tablet ORAL TWICE DAILY Qty = 180 Temazepam (Temazepam) 15 MG CAPSULE 1 Capsule ORAL TAKE AT BEDTIME Qty = 90 Oxymetazoline HCl (Afrin) 0.05 % SPRAY [place] Both sides of nose as needed for NASAL CONGESTIN Epoetin Edy (Procrit) 10,000 UNIT/ML VIAL 20,000 Unit Inject into fatty tissue ONCE A WEEK Qty = 10 Trazodone HCl (Trazodone HCl) 50 MG TABLET 0.5 Tablet ORAL Q4H as needed for PANIC Sennosides (Senna) 8.6 MG TABLET 2 Tablet ORAL Every night Propylene Glycol/Peg 400 (Systane 0.3-0.4% Eye Drops) 0.3 %-0.4 % DROPS 1 Drop In the eye Every night Start taking the following new medications: Tiotropium [place] (Spiriva) 18 MCG CAP.W.DEV 1 Puff Inhale through mouth DAILY Days = 30 No Refills Furosemide (Lasix) 80 MG TABLET 1 Tablet ORAL TWICE DAILY Days = 30 No Refills Copies To: [place] CRANDALL,GERTRUDIS Manriquez; MONICA CRANDALL,AURA Jones; PAO CRANDALL,MARIO
--- NOTE | 2016-03-12 09:26 | Patient Discharge Instructions ---
Discharge Instructions General Discharge Information You were seen/treated for: -CHF exacerbation -Chronic kidney disease -Atrial fibrillation on warfarin Special Instructions: -Please follow-up with your PCP within a week of discharge. -Please follow up with Mergers And Acquisitions Attorney, Dr. Brink within a week of of discharge. -Please follow up with vulcanized fiber unit operator, Dr. Day within a week of discharge. -Please check INR daily and dose warfarin based on INR levels. Goal is INR 2-3. INR level on 03/14/16 is 3.17. Warfarin on hold today. Please check INR tomorrow morning and dose warfarin accrodingly. -Follow-up with CHF and Coumadin clinic. -Make an appointment to see interventional technologist, Dr. Poon, within a week of discharge (referral provided). Diet Recommended Diet: Renal Dialysis, 800 mL daily fluid restriction Activity Additional ACTIVITY Info: As tolerated Acute Coronary Syndrome Inclusion Criteria At [place] or during hospital stay patient has or had the following: ACS DIAGNOSIS No Discharge Core Measures Meds if any: Prescribed or Continued at Discharge Meds if any: NOT Prescribed or Continued at Discharge Congestive Heart Failure Inclusion Criteria At [place] or during hospital stay patient has or had the following: CHF DIAGNOSIS Yes Discharge Core Measures Meds if any: Prescribed or Continued at Discharge JANETTE/ARB for EF <40% No (EF>60%) Meds if any: NOT Prescribed or Continued at Discharge Cerebrovascular accident Inclusion Criteria At [place] or during hospital stay patient has or had the following: CVA/TIA Diagnosis No Discharge Core Measures Meds if any: Prescribed or Continued at Discharge Meds if any: NOT Prescribed or Continued at Discharge Venous thromboembolism Inclusion Criteria VTE Diagnosis No VTE Type NONE VTE Confirmed by (Test) NONE Discharge Core Measures - Per Current guidelines, there needs to be overlap - treatment for the first 5 days of Warfarin therapy. - If discharged on Warfarin prior to 5 days of - overlap therapy, the patient will need to be - assessed for post discharge needs including - *Post discharge parental anticoagulation - *Warfarin and/or parental anticoagulation education - *Follow up date to check INR post discharge At least 5 days overlap therapy as Inpatient No Meds if any: Prescribed or Continued at Discharge Note: Overlap Therapy is Warfarin and Anticoagulant Meds if any: NOT Prescribed or Continued at Discharge
--- NOTE | 2016-03-12 09:39 | PN- Nephrology ---
Assessment/Plan Assessment: 1. CKD: severe, stage 4; stable w/o renal replacement need 2. Hyponatremia: improved w fluid restriction & diuresis 3. Volume overload: due to CHF/valvular heart dx & CKD; improved 4. Anemia: due to CKD & Fe deficiency; completed IV Fe & will continue sc EPO as outpt Suggestion: 1. OK for discharge from renal perspective 2. EPO sc q wk as outpt via infusion center - pt aware 3. continue po Lasix Subjective Subjective: No SOB Feeling better For possible discharge today Objective Vital Signs and I&Os Vital Signs Date Time Temp Pulse Resp B/P Pulse O2 O2 Flow FiO2 Ox Delivery Rate 03/12 0805 97.6 114 20 144/82 91 Room Air 03/12 0009 98.0 84 18 142/60 92 Room Air 03/12 0000 92 Room Air 03/11 2158 102 148/88 03/11 1625 97.9 88 18 152/64 91 Room Air 03/11 1600 92 Room Air Intake & Output 03/12 1600 03/12 0400 03/11 1600 03/11 0400 03/10 1600 03/10 0400 Intake Total 240 200 790 400 510 400 Output Total 550 1300 8755 814 2128 800 Balance -310 -1100 -460 -200 -1040 -400 Intake, IV 250 0 0 Intake, Oral 240 200 540 400 510 400 Number 1 0 1 0 0 Bowel Movements Output, Urine 550 1300 3593 863 0080 800 Patient 150 lb 152 lb 156 lb Weight Physical Exam General Appearance: well developed/nourished, no apparent distress Head: atraumatic, normal appearance Ears, Nose, Throat: normal ENT inspection Neck: normal inspection Respiratory: no respiratory distress, lungs clear Cardiovascular: irregularly irregular Abdomen: soft, non-tender Extremities: swelling Results Pertinent Lab Results: Laboratory Tests 03/12 03/11 03/10 0615 0610 0610 Chemistry Sodium (137 - 145 mmol/L) 136 L Potassium (3.5 - 5.1 mmol/L) 3.9 Chloride (98 - 107 mmol/L) 97 L Carbon Dioxide (22 - 30 mmol/L) 24 Anion Gap (5 - 16) 15 BUN (7 - 17 mg/dL) 47 H Creatinine (0.5 - 1.0 mg/dL) 2.6 H Estimated GFR (>60 ml/min) 17 L BUN/Creatinine Ratio (7 - 25 %) 18.1 Calcium (8.4 - 10.2 mg/dL) 9.5 Phosphorus (2.5 - 4.5 mg/dL) 5.7 H Magnesium (1.6 - 2.3 mg/dL) 1.9 2.0 Coagulation PT (9.4 - 12.5 SEC) 34.1 H 27.9 H INR (0.90 - 1.19) 3.29 H 2.68 H 03/10 0610 Chemistry Sodium (137 - 145 mmol/L) 135 L Potassium (3.5 - 5.1 mmol/L) 4.2 Chloride (98 - 107 mmol/L) 100 Carbon Dioxide (22 - 30 mmol/L) 24 Anion Gap (5 - 16) 11 BUN (7 - 17 mg/dL) 46 H Creatinine (0.5 - 1.0 mg/dL) 2.6 H Estimated GFR (>60 ml/min) 17 L BUN/Creatinine Ratio (7 - 25 %) 17.7 Coagulation PT (9.4 - 12.5 SEC) 22.3 H INR (0.90 - 1.19) 2.14 H Hematology CBC w Diff NO MAN DIFF REQ WBC (4.8 - 10.8 /CUMM) 4.6 L RBC (4.20 - 5.40 /CUMM) 3.04 L Hgb (12.0 - 16.0 G/DL) 9.1 L Hct (37 - 47 %) 27.3 L MCV (81.0 - 99.0 FL) 89.6 MCH (27.0 - 31.0 PG) 29.8 RDW (11.5 - 14.5 %) 17.4 H Plt Count (130 - 400 /CUMM) 178 MPV (7.4 - 10.4 FL) 9.5 Gran % (42.2 - 75.2 %) 70.9 Lymphocytes % (20.5 - 51.1 %) 12.5 L Monocytes % (1.7 - 9.3 %) 9.4 H Eosinophils % (0 - 5 %) 6.5 H Basophils % (0.0 - 2.0 %) 0.7 Absolute Granulocytes (1.4 - 6.5 /CUMM) 3.3 Absolute Lymphocytes (1.2 - 3.4 /CUMM) 0.6 L Absolute Monocytes (0.10 - 0.60 /CUMM) 0.4 Absolute Eosinophils (0.0 - 0.7 /CUMM) 0.3 Absolute Basophils (0.0 - 0.2 /CUMM) 0 PUBS MCHC (33.0 - 37.0 G/DL) 33.3
[2016-03-12 15:31] VITALS: BP 126/64
--- NOTE | 2016-03-12 16:51 | PN- Cardiology ---
Subjective Subjective: Doing OK. Anxious to go home. Had sore throat earlier today. Quick flu and strep evaluation sent. Objective Vital Signs and I&Os Vital Signs Date Time Temp Pulse Resp B/P Pulse O2 O2 Flow FiO2 Ox Delivery Rate 03/12 1531 98.5 94 20 126/64 90 Room Air 03/12 1524 Room Air Room Air 03/12 1010 Room Air 03/12 0943 114 144/82 03/12 0805 97.6 114 20 144/82 91 Room Air 03/12 0009 98.0 84 18 142/60 92 Room Air 03/12 0000 92 Room Air 03/11 2158 102 148/88 Intake & Output 03/12 1600 03/12 0800 03/12 0000 03/11 1600 03/11 0800 03/11 0000 Intake Total 730 240 200 550 240 400 Output Total 068 407 1341 650 600 600 Balance 230 -310 -1100 -100 -360 -200 Intake, IV 250 250 Intake, Oral 480 240 200 300 240 400 Number 1 1 0 1 Bowel Movements Output, Urine 430 845 7274 650 600 600 Patient 150 lb 152 lb 152 lb Weight Current Medications: Current Medications Sig/Aaliyah Start time Last Medication Dose Route Stop Time Status Admin Acetaminophen 650 MG Q6PRN PRN 03/09 1715 AC 03/10 PO 1254 Artificial Tears 1 GTT TID PRN 03/08 1000 AC OPH Atorvastatin Calcium 20 MG 1700 03/08 1700 03/12 PO 1609 Carvedilol 25 MG BID 03/07 2330 03/12 PO 0943 Clobetasol Propionate 1 SEB BID PRN 03/08 1000 AC TOP Docusate Sodium 100 MG BID 03/11 1000 AC 03/11 PO 0815 Epoetin Edy 10,000 UNIT QMON 03/08 1130 03/08 OK 1224 Epoetin Edy 2,000 UNIT QMON 03/08 1130 03/08 OK 1225 Epoetin Edy 3,000 UNIT QMON 03/08 1130 03/08 OK 1225 Ergocalciferol 50,000 IU QSUN 03/14 0700 PO Ferric Sodium 250 MG 1100 03/09 1100 DC 03/12 Gluconate Complex IV 03/12 1259 1453 Sodium Chloride 250 ML Furosemide 80 MG 7:30 AM, & 4:30 PM 03/11 1630 03/12 PO 1609 Guaifenesin 600 MG Q12P PRN 03/12 0445 AC 03/12 PO 0556 Guaifenesin 600 MG ONCE ONE 03/11 1815 DC 03/11 PO 03/11 1816 1944 Nystatin 1 SEB BID 03/08 1313 DC 03/12 TOP 0943 Senna 374 MG AT BEDTIME 03/08 2200 AC 03/10 PO 2128 Temazepam 15 MG AT BEDTIME 03/07 2245 AC 03/11 PO 2159 Trazodone HCl 25 MG Q4H PRN 03/07 2245 AC 03/10 PO 0400 Warfarin Sodium 5 MG COUMADIN 1700 ONE 03/11 1700 DC 03/11 PO 03/11 1701 1653 Results Last 48 Hrs of Labs/Mics: Laboratory Tests 03/12/16 0615: Anion Gap 15, Estimated GFR 17 L, BUN/Creatinine Ratio 18.1, Magnesium 1.9, PT 34.1 H, INR 3.29 H 03/11/16 0610: PT 27.9 H, INR 2.68 H Assessment/Plan Assessment/Plan Assessment: 1. Chronic atrial fibrillation, anticoagulated on warfarin. 2. Moderate pulmonary hypertension with moderate to severe tricuspid regurgitation 3. Mild aortic stenosis 4. Acute exacerbation of HFpEF, improving Recommendations: - Continue current dose of po lasix - COntinue to monitor I/Os and weights while in hospital - Continue other current medication. - PT input noted. Extended discussion with the patient and her family. To my eye the patient would benefit from rehab. The patient however is adamant about going home. Discussed at length with the family and continuing care. - Plan for discharge home in AM if flu and strep results reviewed. - IF any issues noted at home the family will contact continuing care and they will assist with STR placement - OOB as tolerated. - Followup with Dr Brink as outpatient. Continue telemetry? Yes
[2016-03-13 00:06] VITALS: BP 110/60
[2016-03-13 08:14] VITALS: BP 120/60
[2016-03-13 08:31] LABS: PT 36.6 SEC (9.4-12.5)
--- NOTE | 2016-03-13 08:46 | PN- Housestaff ---
Subjective Follow-up For: -Acute exacerbation of HFpEF -CKD stage 4 Tele-Events Since Last Visit: Atrial fibrillation, rate 89-107, bundle branch block Subjective: Patient seen and examined. Reports some congestion with dry cough. Reports mild shortness of breath. Denies chest pain, nausea, vomiting, dizziness, lightheadedness, abdominal pain, urinary symptoms. Had scratchy throat with erythematous pharynx yesterday rapid strep and rapid flu negative. Afebrile with stable blood pressure and pulse rate. Was placed on 2 L nasal cannula oxygen saturating 98%. INR this morning supratherapeutic: 3.53 Review of Systems Constitutional: Reports: weakness. Denies: see HPI, chills, diaphoresis, fever. Objective Last 24 Hrs of Vital Signs/I&O Vital Signs Date Time Temp Pulse Resp B/P Pulse O2 O2 Flow FiO2 Ox Delivery Rate 03/13 0911 90 120/60 03/13 0814 97.7 90 24 120/60 98 Nasal 2.0L Cannula 03/13 0018 93 Nasal 2.0L Cannula 03/13 0006 98.4 96 24 110/60 92 Nasal 2.0L Cannula 03/13 0000 Nasal 2.0L Cannula 03/12 2121 113 156/70 03/12 1600 90 Room Air 03/12 1531 98.5 94 20 126/64 90 Room Air 03/12 1524 Room Air Room Air Intake & Output 03/13 1600 03/13 0800 03/13 0000 Intake Total 150 310 Output Total 400 650 Balance -250 -340 Intake, IV 0 10 Intake, Oral 150 300 Number 0 Bowel Movements Output, Urine 400 650 Patient 149 lb Weight Physical Exam General Appearance: Alert, Oriented X3, Cooperative, No Acute Distress Skin: No Rashes, No Breakdown, No Significant Lesion HEENT: Atraumatic, PERRLA, EOMI, Mucous Membr. moist/pink Neck: Supple, No JVD, No thryomegaly, +2 Carotid Pulse wo Bruit, No LAD, normal pharynx Lymphatic: Axillary nl, Cervical nl Cardiovascular: Irregular, sys murmur Lungs: expiratory wheezes, b/l crackles Abdomen: Normal Bowel Sounds, Soft, No Tenderness, No Hepatospenomegaly, No Masses Neurological: Normal Speech, Strength at 5/5 X4 Ext, Normal Tone, Sensation Intact, Cranial Nerves 3-12 NL, Reflexes 2+ Extremities: LE edema B/L Vascular: Pulses Symmetrical Current Medications: Current Medications Sig/Aaliyah Start time Last Medication Dose Route Stop Time Status Admin Acetaminophen 650 MG .STK-MED ONE 03/12 2111 DC PO 03/12 2112 Acetaminophen 650 MG Q6PRN PRN 03/09 1715 03/12 PO 211 Artificial Tears 1 GTT TID PRN 03/08 1000 AC OPH Atorvastatin Calcium 20 MG 1700 03/08 1700 AC 03/12 PO 1609 Carvedilol 25 MG BID 03/07 2330 AC 03/13 PO 0911 Clobetasol Propionate 1 SEB BID PRN 03/08 1000 AC TOP Docusate Sodium 100 MG BID 03/11 1000 AC 03/13 PO 0911 Epoetin Edy 10,000 UNIT QMON 03/08 1130 AC 03/08 SC 1224 Epoetin Edy 2,000 UNIT QMON 03/08 1130 AC 03/08 SC 1225 Epoetin Edy 3,000 UNIT QMON 03/08 1130 03/08 SC 1225 Ergocalciferol 50,000 IU QSUN 03/14 0700 AC PO Ferric Sodium 250 MG 1100 03/09 1100 DC 03/12 Gluconate Complex IV 03/12 1259 1453 Sodium Chloride 250 ML Furosemide 80 MG 7:30 AM, & 4:30 PM 03/11 1630 03/13 PO 0911 Guaifenesin 600 MG Q12P PRN 03/12 0445 03/13 PO 0942 Nystatin 1 SEB BID 03/08 1313 AL 03/12 TOP 0943 Senna 374 MG AT BEDTIME 03/08 2200 03/12 PO 2114 Temazepam 15 MG AT BEDTIME 03/07 224 03/12 PO 211 Trazodone HCl 25 MG Q4H PRN 03/07 2245 03/10 PO 0400 Last 24 Hrs of Lab/Saad Results Last 24 Hrs of Labs/Mics: Laboratory Tests 03/13/16 0600: PT 36.6 H, INR 3.53 H Microbiology 03/13 1108 URINE ROUT: Urine Culture - ORD 03/13 1108 LOWER RESP: Respiratory Culture - ORD 03/13 1108 LOWER RESP: Gram Stain - ORD 03/13 1108 BLOOD: Blood Culture - ORD 03/13 1108 BLOOD: Blood Culture - ORD Assessment/Plan Assessment: This is a 89-year-old lady with past medical history significant for chronic atrial fibrillation, HFpEF, Hypertension who presented to the hospital with worsening edema in UEs and LEs along with dyspnea. Problem list: 1-Acute Hfpef exacerbation 2-Chronic A.fib on Warfarin, Supratherapeutic INR on admission 3-CKD stage IVstable 4-?atypical pneumonia Plan: * Telemtry monitor * Is&Os:-420 ml 03/12/16, daily Wts 150 03/12/16 * Echo 03/09/2016:Normal size left ventricle. Mild concentric left ventricular hypertrophy. Normal left ventricular ejection fraction visually estimated at > 60%. Mild right ventricular dilatation. Moderate right atrial dilatation. Mild left atrial dilatation. Severe thickening/calcification of the posterior mitral valve leaflet. Mild mitral regurgitation. Diffuse thickening of the aortic valve cusps with reduced excursion. Mild aortic stenosis. Mild aortic regurgitation. Moderate to severe tricuspid regurgitation. Right ventricular systolic pressure estimated to be elevated at 54 mmHg. Trace pulmonic regurgitation. * On PO lasix 80 mg twice a day * Rapid strep and flu negative. * TRC/NEBS * Pulmonary consult * Daily BEP * Nephro consult appreciated:Fluid restriction 800ML daily, NaCl tabs discontinued, was started on a fe gluconate 50 mg IV daily for 4 doses completed the course . Test all stools for Hemoccult. Continue with EPO sc q wk. * INR 3.53today; will hold warfarin today; INR tomorrow morning: Will check LFTs. * C/W Carvediolol * DNI/DNR * DVT PPX: On Warfarin Problem List: 1. CHF (congestive heart failure) 2. Acute kidney injury Pain Ratin Pain Location: NA Pain Goal: Remain pain free Pain Plan: pain free Tomorrow's Labs & Rationales: INR PT on warfarin Consulting Request: Consulting Specialty: Nephrology
[2016-03-13] MEDS ORDERED: LASIX80 M1 PO (08:54)
[2016-03-13 14:01] LABS: ABSOLUTE BASOPHIL COUNT 0 /CUMM (0.0-0.2); ABSOLUTE EOSINOPHIL COUNT 0 /CUMM (0.0-0.7); ABSOLUTE GRANULOCYTE CT 1.9 /CUMM (1.4-6.5); ABSOLUTE LYMPH COUNT 0.5 /CUMM (1.2-3.4); ABSOLUTE MONOCYTE COUNT 0.4 /CUMM (0.10-0.60); BASOPHIL % 0.1 % (0.0-2.0); EOSINOPHIL % 0.9 % (0-5); GRANULOCYTE % 65.9 % (42.2-75.2); HEMATOCRIT 30.6 % (37-47); MEAN CORPUSCULAR HGB 29.5 PG (27.0-31.0); MEAN CORPUSCULAR HGB CONC 32.3 G/DL (33.0-37.0); MEAN CORPUSCULAR VOLUME 91.3 FL (81.0-99.0); MEAN PLATELET VOLUME 9.1 FL (7.4-10.4); PLATELET COUNT 198 /CUMM (130-400); RBC DISTRIBUTION WIDTH 17.9 % (11.5-14.5); RED BLOOD CELL CT 3.35 /CUMM (4.20-5.40); WHITE BLOOD CELL COUNT 2.9 /CUMM (4.8-10.8)
--- NOTE | 2016-03-13 14:20 | Cons- Pulmonary ---
General Information and HPI Consulting Request Date of Consult: 03/13/16 Requested By: Med team History of Present Illness: This is a lady with history of atrial fibrillation on warfarin, hypertension, hyperlipidemia, has moderate hypertension moderate to severe tricuspid regurg with aortic stenosis. She came in with acute exacerbation of heart failure with preserved ejection fraction. As she continues to be hypoxemic this consult was asked. She also has chronic kidney disease stage IV without renal replacement therapy needed at this time. She also has chronic hyponatremia and she has had on and off volume fluid overloaded with significant anemia and she has been getting Lasix. Last chest x-ray done did reveal that she has had some infiltrate in the left basal area which appears chronic. Her baseline creatinine is around 2.6. She does have some dry cough mild shortness of breath denied chest pain nausea vomiting dizziness lightheadedness abdominal pain or urinary symptoms Scratchy throat She's been afebrile throughout O2 sat 98% Review of symptoms otherwise negative Allergies/Medications Allergies: Coded Allergies: Penicillins (EDEMA 09/18/15) cefdinir (TONGUE SWELLING 09/18/15) codeine (HYPERACTIVITY 09/18/15) erythromycin base (UPSET STOMACH 09/18/15) ibuprofen (UPSET STOMACH 09/18/15) Home Med List: Atorvastatin Calcium 20 MG TABLET 1 TAB PO DAILY CHOLESTEROL (Reported) Carvedilol 25 MG TABLET 1 TAB PO BID BP (Reported) Epoetin Edy (Procrit) 10,000 UNIT/ML VIAL 20,000 UNIT SC ONCE A WEEK ANEMIA Ergocalciferol (Vitamin D2) (Vitamin D2) 50,000 UNIT CAPSULE 1 CAP PO QSUN SUPPLEMENT (Reported) Furosemide 40 MG TABLET 1 TAB PO DAILY DIURETIC (Reported) Furosemide (Lasix) 80 MG TABLET 1 TAB PO DAILY HEART Furosemide (Lasix) 80 MG TABLET 1 TAB PO BID CHF Nisoldipine 20 MG TAB.ER.24H 1 TAB PO QAM BP (Reported) Oxymetazoline HCl (Afrin) 0.05 % SPRAY NASAL CONGESTIN (Reported) Propylene Glycol/Peg 400 (Systane 0.3-0.4% Eye Drops) 0.3 %-0.4 % DROPS 1 GTT OPH QPM BOTH EYES (Reported) Sennosides (Senna) 8.6 MG TABLET 2 TAB PO QPM GI (Reported) Sodium Chloride 1 GRAM TABLET 1 TAB PO BID SODIUM (Reported) Solifenacin Succinate (Vesicare) 5 MG TABLET 1 TAB PO DAILY BLADDER (Reported ) Temazepam 15 MG CAPSULE 1 CAP PO QHS SLEEP (Reported) Trazodone HCl 50 MG TABLET 0.5 TAB PO Q4H PRN PANIC (Reported) Warfarin Sodium (Coumadin) 3 MG TABLET 1 TAB PO DAILY A.fib (Reported) total dose 3.5 daily Warfarin Sodium (Coumadin) 1 MG TABLET 0.5 TAB PO DAILY A.fib (Reported) total dose 3.5 daily Review of Systems Review of Systems Constitutional: Reports: see HPI. 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 Home Services at Home: Home Health Aide Smoking Status: Never Smoked Functional Ability ADLs Independent: dressing, eating, toileting. Ambulation: walker Exam & Diagnostic Data Last 24 Hrs of Vital Signs/I&O Vital Signs Date Time Temp Pulse Resp B/P Pulse O2 O2 Flow FiO2 Ox Delivery Rate 03/13 0911 90 120/60 03/13 0814 97.7 90 24 120/60 98 Nasal 2.0L Cannula 03/13 0018 93 Nasal 2.0L Cannula 03/13 0006 98.4 96 24 110/60 92 Nasal 2.0L Cannula 03/13 0000 Nasal 2.0L Cannula 03/12 2121 113 156/70 03/12 1600 90 Room Air 03/12 1531 98.5 94 20 126/64 90 Room Air 03/12 1524 Room Air Room Air Intake & Output 03/13 1600 03/13 0800 03/13 0000 Intake Total 150 310 Output Total 400 650 Balance -250 -340 Intake, IV 0 10 Intake, Oral 150 300 Number 0 Bowel Movements Output, Urine 400 650 Patient 149 lb Weight Last 48 Hrs of Labs/Saad: Laboratory Tests 03/13/16 1300: Sodium Pending, Potassium Pending, Chloride Pending, Carbon Dioxide Pending, Anion Gap Pending, BUN Pending, Creatinine Pending, BUN/Creatinine Ratio Pending 03/13/16 1300: Total Bilirubin Pending, Direct Bilirubin Pending, AST Pending, ALT Pending, Alkaline Phosphatase Pending, Total Protein Pending, Albumin Pending, CBC w Diff NO MAN DIFF REQ, RBC 3.35 L, MCV 91.3, MCH 29.5, RDW 17.9 H, MPV 9.1, Gran % 65.9, Lymphocytes % 18.2 L, Monocytes % 14.9 H, Eosinophils % 0.9, Basophils % 0.1, Absolute Granulocytes 1.9, Absolute Lymphocytes 0.5 L, Absolute Monocytes 0.4, Absolute Eosinophils 0, Absolute Basophils 0, PUBS MCHC 32.3 L 03/13/16 0600: PT 36.6 H, INR 3.53 H 03/12/16 0615: Anion Gap 15, Estimated GFR 17 L, BUN/Creatinine Ratio 18.1, Magnesium 1.9, PT 34.1 H, INR 3.29 H Assessment/Plan Impression/Plan: Physical Exam General Appearance: Alert, Oriented X3, Cooperative, No Acute Distress Skin: No Rashes, No Breakdown, No Significant Lesion HEENT: Atraumatic, PERRLA, EOMI, Mucous Membr. moist/pink Neck: Supple, No JVD, No thryomegaly, +2 Carotid Pulse wo Bruit, No LAD, normal pharynx Lymphatic: Axillary nl, Cervical nl Cardiovascular: Irregular, sys murmur Lungs: expiratory wheezes, b/l crackles Abdomen: Normal Bowel Sounds, Soft, No Tenderness, No Hepatospenomegaly, No Masses Neurological: Normal Speech, Strength at 5/5 X4 Ext, Normal Tone, Sensation Intact, Cranial Nerves 3-12 NL, Reflexes 2+ Extremities: LE edema B/L Vascular: Pulses Symmetrical SIGNIFICANT DATA Chest x-ray reviewed from the 12th which showed some atelectasis basal opacity in the left side area no significant evidence suggestive of significant pneumonia she has had bilateral pleural effusions in the past which seems to be improving Creatinine stable at 2.6 Other blood work reviewed previous TSH was normal White count continues to be low hemoglobin 9.9 platelets 1 9814% monocytes INR 3.5 urine immunoelectrophoresis and serum electrophoresis reviewed She has no monoclonal proteins in the blood a total protein was low due to hyperalbuminemia she does also have reduced gammaglobulin Last echocardiogram done showed normal ejection fraction with significant pulmonary hypertension IMPRESSION This is a lady with history of chronic atrial fibrillation on warfarin, hypertension, hyperlipidemia, chronic kidney disease stage IV, severe pulmonary hypertension related to diastolic dysfunction with tricuspid regurg and aortic valve disease, recurrent edema with heart failure with preserved ejection fraction, no significant chronic lung disease in the past, previous elevated liver enzymes, osteoporosis, previous history suggestive of pleurisy, now comes here with * Resolving Acute congestive heart failure with preserved ejection fraction slowly improving. Unfortunately due to her chronic kidney disease she's been unable to diurese significantly * Her hypoxemia is related to bilateral mild pleural effusion, atelectasis due to her body habitus. She has moderate to severe pulmonary hypertension this is a cause of her hypoxemia. No clinical evidence suggestive of chronic venous thromboembolism and patient is already anticoagulated. No clinical evidence suggestive of acute bacterial pneumonitis as she does not have significant leukocytosis or yellow-green sputum and she has been afebrile since admission without being on any steroids. * She has small left pleural effusion with atelectasis suggesting this is a chronic finding which is also contributing to his her hypoxemia * Valvular heart disease with severe tricuspid regurg and aortic stenosis which appears to be mild and tricuspid regurg and severe RECOMMENDATION Check oxygen sat and if less than 89 then Patient would require long-term oxygen therapy, for Pulm HTN and chf Continue aggressive diuresis Start Spiriva 1 puff once a day if patient can tolerate it Increase activity No antibiotics necessary OK today Consult Acknowledgment - Thank you for your consult request.
[2016-03-13 16:00] VITALS: BP 128/72
--- NOTE | 2016-03-13 16:42 | PN- Cardiology ---
Subjective Subjective: No complaints and agreeable to short-term rehabilitation. Her rhythm on telemetry is atrial fibrillation with acceptable ventricular response and no other significant dysrhythmias. Objective Vital Signs and I&Os Vital Signs Date Time Temp Pulse Resp B/P Pulse O2 O2 Flow FiO2 Ox Delivery Rate 03/13 1200 95 Room Air 03/13 0911 90 120/60 03/13 0814 97.7 90 24 120/60 98 Nasal 2.0L Cannula 03/13 0018 93 Nasal 2.0L Cannula 03/13 0006 98.4 96 24 110/60 92 Nasal 2.0L Cannula 03/13 0000 Nasal 2.0L Cannula 03/12 2121 113 156/70 Intake & Output 03/13 1600 03/13 0800 03/13 0000 03/12 1600 03/12 0803/12 0000 Intake Total 150 310 730 240 200 Output Total 200 400 650 958 311 8380 Balance -200 -250 -340 230 -310 -1100 Intake, IV 0 10 250 Intake, Oral 150 300 480 240 200 Number 0 1 1 0 Bowel Movements Output, Urine 200 400 650 154 506 2316 Patient 149 lb 150 lb Weight Physical Exam: Well-developed, overweight elderly female in no acute distress with nasal oxygen in place. Vital signs: See above. Lungs: Mild bilateral expiratory wheezing. Heart: S1, S2 with grade 1-2/6 systolic murmur. Extremities: Decreased edema. Assessment/Plan Assessment/Plan Ms. Hsu is an elderly female with a history of hypertension, chronic kidney disease, chronic anemia on erythropoietin stimulating agents, chronic atrial fibrillation on warfarin anticoagulation, moderate pulmonary hypertension with moderate to severe range tricuspid regurgitation, mild aortic stenosis, and previous heart failure who presented with acute exacerbation of heart failure with preserved ejection fraction who has improved with standard diuretic therapy and who now agrees to short-term rehabilitation. Continue present diuretic regimen along with the rest of her cardiac medications. Plan for outpatient follow-up for further evaluation/management in the near future with her attending furnace utility operator (Sagar Brink M.D.). - Continue telemetry? No (can discontinue telemetry.)
[2016-03-13] MEDS ORDERED: SPIRIVA18 MCG INH (17:05)
[2016-03-13 22:09] VITALS: BP 136/70
--- NOTE | 2016-03-14 08:14 | PN- Housestaff ---
Subjective Follow-up For: -Acute exacerbation of HFpEF -CKD stage 4 Tele-Events Since Last Visit: The patient has been off telemetry. Subjective: Patient seen and examined. Feels better compared to yesterday. Still reports cough. Redness of breath has improved. Denies chest pain, nausea, vomiting, dizziness, lightheadedness, urinary symptoms, abdominal pain. Review of Systems Constitutional: Denies: see HPI. Objective Last 24 Hrs of Vital Signs/I&O Vital Signs Date Time Temp Pulse Resp B/P Pulse O2 O2 Flow FiO2 Ox Delivery Rate 03/14 0846 90 Room Air Room Air 03/14 0000 Room Air 03/13 2209 98.6 104 18 136/70 94 Room Air 03/13 2139 108 126/70 03/13 2037 94 Room Air Room Air 03/13 1733 94 Room Air 03/13 1600 97.8 100 22 128/72 92 Nasal 2.0L Cannula 03/13 1200 95 Room Air 03/13 0911 90 120/60 Intake & Output 03/14 1600 03/14 0800 03/14 0000 Intake Total 120 160 Output Total 500 Balance 120 -340 Intake, IV 10 Intake, Oral 120 150 Output, Urine 500 Patient 152 lb Weight Physical Exam General Appearance: Alert, Oriented X3, Cooperative, No Acute Distress Skin: No Rashes, No Breakdown, No Significant Lesion HEENT: Atraumatic, PERRLA, EOMI, Mucous Membr. moist/pink Neck: Supple, No JVD, No thryomegaly, +2 Carotid Pulse wo Bruit, No LAD Lymphatic: Axillary nl, Cervical nl Cardiovascular: irregular, systolic murmur Lungs: expiratory wheezes Abdomen: Normal Bowel Sounds, Soft, No Tenderness, No Hepatospenomegaly, No Masses Neurological: Normal Gait, Normal Speech, Strength at 5/5 X4 Ext, Normal Tone, Sensation Intact, Cranial Nerves 3-12 NL, Reflexes 2+ Extremities: lower extremity edema, unchanged from last physical exam. Vascular: Pulses Symmetrical Current Medications: Current Medications Sig/Aaliyah Start time Last Medication Dose Route Stop Time Status Admin Acetaminophen 650 MG Q6PRN PRN 03/09 1715 AC 03/12 PO 2116 Albuterol Sulfate 3 ML Q4P PRN 03/13 1530 AC 03/14 INH 0846 Artificial Tears 1 GTT TID PRN 03/08 1000 AC OPH Atorvastatin Calcium 20 MG 1700 03/08 1700 AC 03/13 PO 1727 Carvedilol 25 MG BID 03/07 2330 AC 03/13 PO 2139 Clobetasol Propionate 1 SEB BID PRN 03/08 1000 AC TOP Docusate Sodium 100 MG BID 03/11 1000 AC 03/13 PO 2138 Epoetin Edy 10,000 UNIT QMON 03/08 1130 03/08 [place] 1224 Epoetin Edy 2,000 UNIT QMON 03/08 1130 03/08 SC 1225 Epoetin Edy 3,000 UNIT QMON 03/08 1130 03/08 SC 1225 Ergocalciferol 50,000 IU QSUN 03/14 0700 AC 03/14 PO 0635 Furosemide 80 MG 7:30 AM, & 4:30 PM 03/11 1630 03/14 PO 0634 Guaifenesin 600 MG .STK-MED ONE 03/13 2144 DC PO 03/13 214 Guaifenesin 600 MG Q12P PRN 03/12 0445 03/14 PO 0442 Senna 374 MG AT BEDTIME 03/08 2200 03/13 PO 2138 Temazepam 15 MG AT BEDTIME 03/07 2245 03/13 PO 2139 Tiotropium [place] 1 PUF DAILY 03/13 1442 AC 03/13 INH 1727 Trazodone HCl 25 MG Q4H PRN 03/07 2245 03/14 PO 0515 Last 24 Hrs of Lab/Saad Results Last 24 Hrs of Labs/Mics: Laboratory Tests 03/14/16 0600: PT Pending, INR Pending 03/13/16 1300: Anion Gap 14, Estimated GFR 16 L, BUN/Creatinine Ratio 18.6 03/13/16 1300: Total Bilirubin 0.6, Direct Bilirubin 0.6 H, AST 18, ALT 30, Alkaline Phosphatase 100, Total Protein 5.2 L, Albumin 2.9 L, CBC w Diff NO MAN DIFF REQ, RBC 3.35 L, MCV 91.3, MCH 29.5, RDW 17.9 H, MPV 9.1, Gran % 65.9, Lymphocytes % 18.2 L, Monocytes % 14.9 H, Eosinophils % 0.9, Basophils % 0.1, Absolute Granulocytes 1.9, Absolute Lymphocytes 0.5 L, Absolute Monocytes 0.4, Absolute Eosinophils 0, Absolute Basophils 0, PUBS MCHC 32.3 L Microbiology 03/13 1300 URINE ROUT: Urine Culture - RECD 03/13 1202 BLOOD: Blood Culture - RECD 03/13 1155 BLOOD: Blood Culture - RECD 03/13 1108 LOWER RESP: Respiratory Culture - COLB 03/13 1108 LOWER RESP: Gram Stain - COLB Assessment/Plan Assessment: This is a 89-year-old lady with past medical history significant for chronic atrial fibrillation, HFpEF, Hypertension who presented to the hospital with worsening edema in UEs and LEs along with dyspnea. Problem list: 1-Acute Hfpef exacerbation 2-Chronic A.fib on Warfarin, Supratherapeutic INR on admission 3-CKD stage IVstable Plan: * Telemtry monitor * Is&Os:-790 ml 03/13/16, daily Wts 149 03/13/16 * Echo 03/09/2016:Normal size left ventricle. Mild concentric left ventricular hypertrophy. Normal left ventricular ejection fraction visually estimated at > 60%. Mild right ventricular dilatation. Moderate right atrial dilatation. Mild left atrial dilatation. Severe thickening/calcification of the posterior mitral valve leaflet. Mild mitral regurgitation. Diffuse thickening of the aortic valve cusps with reduced excursion. Mild aortic stenosis. Mild aortic regurgitation. Moderate to severe tricuspid regurgitation. Right ventricular systolic pressure estimated to be elevated at 54 mmHg. Trace pulmonic regurgitation. * On PO lasix 80 mg twice a day * Rapid strep and flu negative. * TRC/NEBS * Pulmonary consult appreciated, Spiriva added to medications, no need for antibiotics * Daily BEP * Nephro consult appreciated:Fluid restriction 800ML daily, NaCl tabs discontinued, was started on a fe gluconate 50 mg IV daily for 4 doses completed the course . Test all stools for Hemoccult. Continue with EPO sc q wk. * INR 3.17today; will hold warfarin today; INR tomorrow morning * LFTs: Total bilirubin 0.6, direct bilirubin 0.6, AST 18, ALT 30, alkaline phosphatase 100; direct bilirubin mildly elevated however total bilirubin is within normal limits, AST, ALT, alkaline phosphatase within normal limit, hepatitis B and C negative (12/20/2015). Patient not jaundiced, no abdominal pain or other complaints. ? Isolated direct hyperbilirubinemia; mildly elevated /total bilirubin normal. ?abd US. Outpatient follow-up, repeat labs. * C/W Carvediolol * DNI/DNR * DVT PPX: On Warfarin Problem List: 1. CHF exacerbation 2. Chronic renal insufficiency 3. CHF (congestive heart failure) Pain Ratin Pain Location: NA Pain Goal: Remain pain free Pain Plan: Patient is pain free Tomorrow's Labs & Rationales: INR Pt on Warfarin Consulting Request: Consulting Specialty: Nephrology
[2016-03-14 08:53] LABS: PT 32.9 SEC (9.4-12.5)
--- NOTE | 2016-03-14 10:06 | PN- Pulmonary ---
Subjective HPI/Critical Care Issues: Patient seen and examined. Feels better compared to yesterday. Still reports mild dry cough. breath has improved. Denies chest pain, nausea, vomiting, dizziness, lightheadedness, urinary symptoms, abdominal pain. Review of Systems Constitutional: Denies: see HPI. Objective Current Medications: Current Medications Sig/Aaliyah Start time Last Medication Dose Route Stop Time Status Admin Acetaminophen 650 MG Q6PRN PRN 03/09 1715 DC 03/12 PO 2116 Albuterol Sulfate 3 ML Q4P PRN 03/13 1530 AC 03/14 INH 0846 Artificial Tears 1 GTT TID PRN 03/08 1000 AC OPH Atorvastatin Calcium 20 MG 1700 03/08 1700 AC 03/13 PO 1727 Carvedilol 25 MG BID 03/07 2330 AC 03/14 PO 0929 Clobetasol Propionate 1 SEB BID PRN 03/08 1000 AC TOP Docusate Sodium 100 MG BID 03/11 1000 AC 03/14 PO 0928 Epoetin Edy 10,000 UNIT QMON 03/08 1130 03/08 SC 1224 Epoetin Edy 2,000 UNIT QMON 03/08 1130 AC 03/08 SC 1225 Epoetin Edy 3,000 UNIT QMON 03/08 1130 AC 03/08 SC 1225 Ergocalciferol 50,000 IU QSUN 03/14 0700 AC 03/14 PO 0635 Furosemide 80 MG 7:30 AM, & 4:30 PM 03/11 1630 AC 03/14 PO 0634 Guaifenesin 600 MG .STK-MED ONE 03/13 2144 DC PO 03/13 2145 Guaifenesin 600 MG Q12P PRN 03/12 0445 03/14 PO 0442 Senna 374 MG AT BEDTIME 03/08 2200 AC 03/13 PO 2138 Temazepam 15 MG AT BEDTIME 03/07 2245 AC 03/13 PO 2139 Tiotropium [place] 1 PUF DAILY 03/13 1442 AC 03/14 INH 0929 Trazodone HCl 25 MG Q4H PRN 03/07 2245 03/14 PO 0515 Vital Signs & I&O Last 24 Hrs of Vitals and I&O: Vital Signs Date Time Temp Pulse Resp B/P Pulse O2 O2 Flow FiO2 Ox Delivery Rate 03/14 0846 90 Room Air Room Air 03/14 0000 Room Air 03/13 2209 98.6 104 18 136/70 94 Room Air 03/13 2139 108 126/70 03/13 2037 94 Room Air Room Air 03/13 1733 94 Room Air 03/13 1600 97.8 100 22 128/72 92 Nasal 2.0L Cannula 03/13 1200 95 Room Air Intake & Output 03/14 1600 03/14 0800 03/14 0000 Intake Total 120 160 Output Total 500 Balance 120 -340 Intake, IV 10 Intake, Oral 120 150 Output, Urine 500 Patient 152 lb Weight Laboratory Tests 03/14 03/13 03/13 0600 1300 1300 Chemistry Sodium (137 - 145 mmol/L) 136 L Potassium (3.5 - 5.1 mmol/L) 3.9 Chloride (98 - 107 mmol/L) 95 L Carbon Dioxide (22 - 30 mmol/L) 28 Anion Gap (5 - 16) 14 BUN (7 - 17 mg/dL) 52 H Creatinine (0.5 - 1.0 mg/dL) 2.8 H Estimated GFR (>60 ml/min) 16 L BUN/Creatinine Ratio (7 - 25 %) 18.6 Total Bilirubin (0.2 - 1.3 mg/dL) 0.6 Direct Bilirubin (< 0.4 mg/dL) 0.6 H AST (14 - 36 U/L) 18 ALT (9 - 52 U/L) 30 Alkaline Phosphatase (<127 U/L) 100 Total Protein (6.3 - 8.2 g/dL) 5.2 L Albumin (3.5 - 5.0 g/dL) 2.9 L Coagulation PT (9.4 - 12.5 SEC) 32.9 H INR (0.90 - 1.19) 3.17 H Hematology CBC w Diff NO MAN DIFF REQ WBC (4.8 - 10.8 /CUMM) 2.9 L RBC (4.20 - 5.40 /CUMM) 3.35 L Hgb (12.0 - 16.0 G/DL) 9.9 L Hct (37 - 47 %) 30.6 L MCV (81.0 - 99.0 FL) 91.3 MCH (27.0 - 31.0 PG) 29.5 RDW (11.5 - 14.5 %) 17.9 H Plt Count (130 - 400 /CUMM) 198 MPV (7.4 - 10.4 FL) 9.1 Gran % (42.2 - 75.2 %) 65.9 Lymphocytes % (20.5 - 51.1 %) 18.2 L Monocytes % (1.7 - 9.3 %) 14.9 H Eosinophils % (0 - 5 %) 0.9 Basophils % (0.0 - 2.0 %) 0.1 Absolute Granulocytes (1.4 - 6.5 /CUMM) 1.9 Absolute Lymphocytes (1.2 - 3.4 /CUMM) 0.5 L Absolute Monocytes (0.10 - 0.60 /CUMM) 0.4 Absolute Eosinophils (0.0 - 0.7 /CUMM) 0 Absolute Basophils (0.0 - 0.2 /CUMM) 0 PUBS MCHC (33.0 - 37.0 G/DL) 32.3 L 03/13 0600 Coagulation PT (9.4 - 12.5 SEC) 36.6 H INR (0.90 - 1.19) 3.53 H Microbiology Date/Time Procedure - Status Source Growth 03/13 1300 Urine Culture - RECD URINE ROUT 03/13 1202 Blood Culture - RECD BLOOD 03/13 1155 Blood Culture - RECD BLOOD 03/13 1108 Respiratory Culture - COLB LOWER RESP 03/13 1108 Gram Stain - COLB LOWER RESP Impression/Plan Impression/Plan Impression/Plan: Physical Exam General Appearance: Alert, Oriented X3, Cooperative, No Acute Distress Skin: No Rashes, No Breakdown, No Significant Lesion HEENT: Atraumatic, PERRLA, EOMI, Mucous Membr. moist/pink Neck: Supple, No JVD, No thryomegaly, +2 Carotid Pulse wo Bruit, No LAD, normal pharynx Lymphatic: Axillary nl, Cervical nl Cardiovascular: Irregular, sys murmur Lungs: expiratory wheezes, b/l crackles Abdomen: Normal Bowel Sounds, Soft, No Tenderness, No Hepatospenomegaly, No Masses Neurological: Normal Speech, Strength at 5/5 X4 Ext, Normal Tone, Sensation Intact, Cranial Nerves 3-12 NL, Reflexes 2+ Extremities: LE edema B/L Vascular: Pulses Symmetrical Significant data Creatinine at 2.8 which is chronic BUN 52 White count still low at 2.9 Hemoglobin stable Platelets 198 INR is still elevated Patient has had adequate urine output Continues to be on room air Last echocardiogram done showed normal ejection fraction with significant pulmonary hypertension IMPRESSION This is a lady with history of chronic atrial fibrillation on warfarin, hypertension, hyperlipidemia, chronic kidney disease stage IV, severe pulmonary hypertension related to diastolic dysfunction with tricuspid regurg and aortic valve disease, recurrent edema with heart failure with preserved ejection fraction, no significant chronic lung disease in the past, previous elevated liver enzymes, osteoporosis, previous history suggestive of pleurisy, now comes here with * Resolving Acute congestive heart failure with preserved ejection fraction slowly improving. Unfortunately due to her chronic kidney disease she's been unable to diurese significantly * Her hypoxemia is related to bilateral mild pleural effusion, atelectasis due to her body habitus. She has moderate to severe pulmonary hypertension this is a cause of her hypoxemia. No clinical evidence suggestive of chronic venous thromboembolism and patient is already anticoagulated. No clinical evidence suggestive of acute bacterial pneumonitis as she does not have significant leukocytosis or sputum and she has been afebrile since admission without being on any steroids. * She has small left pleural effusion with atelectasis suggesting this is a chronic finding which is also contributing to his her hypoxemia * Valvular heart disease with severe tricuspid regurg and aortic stenosis which appears to be mild and tricuspid regurg and severe * Probable wheezing and bronchitis from pulmonary congestion RECOMMENDATION Continue diuresis Spiriva 1 puff once a day Start Flovent 110 2 puffs twice a day for 2 weeks only Continue aggressive diuresis Clinically stable
[2016-03-14 10:52] VITALS: BP 132/70
[2016-03-14 16:04] VITALS: BP 132/70
== END 2016-03-14 16:20 | DRG 291 ==
LOC: ERH 16:54 → 1NO 20:20 → ERHI 20:20 → 1NO 21:13
PROVIDERS: Internal Medicine; Internal Medicine Nephrology; Physician Assistant Medical; ADMIT Internal Medicine
DX: I13.0 Hypertensive heart and chronic kidney disease with heart failure and stage 1 through stage 4 chronic kidney disease, or unspecified chronic kidney disease (principal); I50.33 Acute on chronic diastolic (congestive) heart failure; N18.4 Chronic kidney disease, stage 4 (severe); I48.2 Chronic atrial fibrillation; J44.9 Chronic obstructive pulmonary disease, unspecified; E87.1 Hypo-osmolality and hyponatremia; Z79.01 Long term (current) use of anticoagulants; D50.9 Iron deficiency anemia, unspecified; I48.91 Unspecified atrial fibrillation; E78.5 Hyperlipidemia, unspecified
CPT/HCPCS: 1NP; 36415; 82436; 82570; 87040; 87070; 87086; 87804; 87804-59; 93005; 93010; 93306; 96374; 97110-GO; 97116-GO; 97162-GP; 97530-GO; 99291; J0885-EC; J1940; J3490